=== PATIENT | female | born 1985 | race Hispanic/Latino ===

== ENCOUNTER 2016-11-16 21:53 | Emergency (ER) | payer OTHER ==
[~2016-11-16 21:53] MED LIST: CETI10TA PO; EXCETAB80 PO; FLUT1LOT; HYDR1SOL PO; LORT1TAB PO; OMEP40CA2 PO; ZONI25CA2 PO; ZONI50CA3 PO
[2016-11-16] MEDS ORDERED: IBUPROFEN 800 MG TAB As Ordered ONE (23:36)
[2016-11-17] MEDS ORDERED: DOXYCYCLINE HYCLATE 100 MG TAB As Ordered ONE (00:32)
--- NOTE | 2016-11-17 01:06 | EDDOCDS ---
Nurse's Notes [facility] Name: Marlee Lee Age: 30 yrs Sex: Female : 1985 Arrival Date: 11/16/2016 Time: 21:53 Bed PR1 / 25 Private MD: Susie Seo C Diagnosis: Acute bronchitis Presentation: 11/16 21:59 Presenting complaint: Patient states: Patient reports starting with cough yesterday but jmb feels sore today. Feet and low back discomfort. Adult Sepsis Screening: The patient does not have new or worsening altered mentation. Patient's respiratory rate is less than 22. Systolic blood pressure is greater than 100. Patient has a qSOFA score of 0- Negative Sepsis Screen. Suicide/Homicide risk assessment- the patient denies having any suicidal and/or homicidal ideations and does not present with any other emotional, behavioral or mental health complaints. Status: Patient is not a clinical services director or dependent. Transition of care: patient was not received from another setting of care. 21:59 Acuity: CAR Level 4 [facility] 21:59 Method Of Arrival: Walkin/Carried/Asstd [facility] Triage Assessment: 22:00 General: Appears in no apparent distress, Behavior is appropriate for age, cooperative. [facility] General: Patient denies pain just soreness. . Pain: Denies pain. HIV screening NA for this visit Offered previously. Neurological: Level of Consciousness is awake, alert, obeys commands, Oriented to person, place, time. Respiratory: Airway is patent Respiratory effort is even, unlabored, Respiratory pattern is regular, symmetrical. Derm: Skin is pink, warm & dry. Musculoskeletal: Range of motion intact in all extremities. 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 ferrous sulfate 325 mg (65 mg iron) Oral tab daily 2. Flexeril 5 mg oral tab 1 tab 3 times per day 3. loratadine 10 mg Oral tab 1 tab once daily 4. omeprazole 40 mg Oral cpDR 1 cap once daily 5. zonisamide 50 mg oral cap 1 cap one capsule in am two at night - PMHx: Chiari Malformation; GERD; Migraine Headaches; Seizure Disorder; - PSHx: Tonsillectomy; thymus removal; chiari malformation removal; - Social history: Smoking status: Patient states was never smoker of tobacco. No barriers to communication noted, The patient speaks fluent Romanian, Speaks appropriately for age, Preferred Language: Slovak. - Family history: Not pertinent. - : The pt / caregiver states he / she is not on anticoagulants. Home medication list is obtained from the patient. - Exposure Risk Screening:: None identified. Screenin/15 01:02 Screening information is obtained from the patient. Fall risk: No risks identified. slm Assistance ADL's: requires no assistance with activities of daily living. Abuse/DV Screen: The patient / caregiver reports he/she is: not in a situation that causes fear, pain or injury. Nutritional screening: No deficits noted. Advance Directives: Currently, there is no health care proxy. There is no active DNR order. There is no living will. There is no Power of Shore Worker. Advance directive information has not previously been placed in an [facility] medical record. home support is adequate. Assessment: 01:01 General: Appears in no apparent distress, comfortable, Behavior is cooperative. slm Respiratory: Airway is patent Respiratory effort is even, unlabored. Derm: Skin is pink, warm & dry. Vital Signs: 11/16 21:55 BP 143 / 80; Pulse 118; Resp 18 S; Temp 100.9(O); Pulse Ox 100% on R/A; Weight 104.33 dd6 kg (R); Height 5 ft. 4 in. (162.56 cm) (R); 11/17 01:03 BP 141 / 74; Pulse 100; Resp 18; Temp 98.9(T); Pulse Ox 18% on R/A; slm 11/16 21:55 Body Mass Index 39.48 (104.33 kg, 162.56 cm) dd6 Vitals: 11/16 21:55 Log In Time: November 16, 2016 at 21:53. dd6 ED Course: 21:54 Patient visited by Cm Garcia PCA. dd6 21:54 Susie Seo is Private Physician. dd6 21:54 Patient moved to Waiting dd6 21:59 Patient moved to Pre RCE dd6 21:59 Triage Initiated jmb 22:38 Patient moved to Triage 2 jordan 23:22 Prahsant Gaona [facility]C [facility] ck7 23:22 Derek Daley DO is Attending Physician. ck7 23:22 Patient visited by Prashant Gaona RPA-C. ck 23:38 Patient moved to TR2 [facility] 23:38 -Influenza A&B Rapid Antigen - Nose Sent. [facility] 11/17 00:00 Patient name changed from Nessasa\S\\S\Tom Claudiorio\S\ to Marlee\S\ \S\Tom Claudiorio. EDMS 00:00 [facility] Payment Agreement was scanned into [employer] and attached to record. hs2 00:07 Patient visited by Prashant Gaona RPA-C. ck7 00:24 Susie Seo is Referral Physician. ck 00:31 Patient moved to PR1 / 25 [facility] 01:04 The patient / caregiver is instructed regarding the plan of care and ED course. Patient slm has correct armband on for positive identification. Bed in low position. Call light in reach. Side rails up X 1. 01:04 No IV's were initiated during this patient's visit. No procedures done that require slm assistance. Administered Medications: 11/16 23:38 Drug: Ibuprofen 800 mg [ibuprofen 800 mg tablet (1 tabs)] Route: PO; [facility] 11/17 01:03 Follow up: Response: Temperature is decreased [facility] 00:33 Drug: Doxycycline 100 mg [doxycycline hyclate 100 mg tablet (1 tabs)] Route: PO; [facility] Point of Care Testing: Urine : 11/16 23:42 hCG Reading: Negative; Control Reading: Positive; [facility] Ranges: Order Results: Lab Order: -Influenza A&B Rapid Antigen - Nose; SPEC'M 11/16/16 23:39 Test: INFLUENZA A RAPID SCR by ICA; Value: INFLUENZA A RESULTS NEGATIVE; Status: F Test: INFLUENZA A RAPID SCR by ICA; Value: Comments:; Status: F Test: INFLUENZA B RAPID SCR by ICA; Value: INFLUENZA B RESULTS NEGATIVE; Status: F Test Note: ; The Influenza test is a direct rapid immunoassay for the qualitative detection of Influenza viral antigen. Cell culture (Viral Culture) testing should be considered to confirm NEGATIVE results and to assist in detecting other viruses that can provide similar clinical symptoms. Please contact the lab within 24 hours ([phone]) if confirmatory testing is desired. Outcome: 11/17 00:24 Discharge ordered by Provider. ck7 01:02 Discharge Assessment: Patient awake, alert and oriented x 3. No cognitive and/or slm functional deficits noted. Patient verbalized understanding of disposition instructions. patient administered narcotics - no. The following High Risk Discharge criteria are identified: None. Discharged to home ambulatory. Condition: good. Discharge instructions given to patient, Instructed on discharge instructions, follow up and referral plans. medication usage, Demonstrated understanding of instructions, medications, Prescriptions given X 3. No special radiology studies were completed. Property :Personal belongings accompany Pt. 01:05 Patient left the ED. slm Signatures: Dispatcher MedHost EDMS Cm Garcia, TYPO MACHINE OPERATOR TYPO MACHINE OPERATOR dd6 Prashant Gaona, RPA-C RPA-Cck7 Sang Naqvi,RN RN Beverly Gipson,LEAN ENGINEER LEAN ENGINEER Nancy Islas, Reg Reg hs2 ZULLY
--- NOTE | 2016-11-17 01:06 | EDDOCDS ---
Physician Documentation [facility] Name: Marlee Lee Age: 30 yrs Sex: Female : 1985 Arrival Date: 11/16/2016 Time: 21:53 Bed PR1 / 25 Private MD: Susie Seo C Disposition: 11/17/16 00:24 Discharged to Home/Self Care. Impression: Acute bronchitis. - Condition is Stable. - Discharge Instructions: Acute Bronchitis. - Prescriptions for Doxycycline Hyclate 100 mg Oral Tablet - take 1 tablet by ORAL route every 12 hours; 20 tablet. benzonatate 200 mg Oral Capsule - take 1 capsule by ORAL route 3 times per day As needed; 30 capsule. Ibuprofen 600 mg Oral Tablet - take 1 tablet by ORAL route every 6 hours As needed take with food; 30 tablet. - Work Release Form - 1 day, Medication Reconciliation, Local Pharmacy Hours form. - Follow up: Susie Seo; When: 2 - 3 days; Reason: Recheck today's complaints, Continuance of care. - Problem is new. - Symptoms have improved. Historical: - Allergies: No known drug Allergies; - Home Meds: 1. ferrous sulfate 325 mg (65 mg iron) Oral tab daily 2. Flexeril 5 mg oral tab 1 tab 3 times per day 3. loratadine 10 mg Oral tab 1 tab once daily 4. omeprazole 40 mg Oral cpDR 1 cap once daily 5. zonisamide 50 mg oral cap 1 cap one capsule in am two at night - PMHx: Chiari Malformation; GERD; Migraine Headaches; Seizure Disorder; - PSHx: Tonsillectomy; thymus removal; chiari malformation removal; - Social history: Smoking status: Patient states was never smoker of tobacco. No barriers to communication noted, The patient speaks fluent P[place], Speaks appropriately for age, Preferred Language: Estonian. - Family history: Not pertinent. - : The pt / caregiver states he / she is not on anticoagulants. Home medication list is obtained from the patient. - Exposure Risk Screening:: None identified. 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 4 in. (162.56 cm) (R); 11/17 01:03 BP 141 / 74; Pulse 100; Resp 18; Temp 98.9(T); Pulse Ox 18% on R/A; [facility] 11/16 21:55 Body Mass Index 39.48 (104.33 kg, 162.56 cm) dd6 MDM: 11/16 23:30 Obtain sample by nasopharyngeal swab ordered. ck7 23:30 Ibuprofen 800 mg PO once ordered. ck7 23:30 UCG by Nursing ordered. ck7 23:31 -Influenza A&B Rapid Antigen - Nose Ordered. EDMS 23:31 Chest, 2 View (pa\E\lat) Ordered. EDMS 23:40 Financial registration complete. hs2 11/17 00:00 [facility] Payment Agreement was scanned into [employer] and attached to record. hs2 00:07 -Influenza A&B Rapid Antigen - Nose Reviewed. ck7 00:27 Doxycycline 100 mg PO once ordered. ck7 Point of Care Testing: Urine : 11/16 23:42 hCG Reading: Negative; Control Reading: Positive; [facility] Ranges: Administered Medications: 23:38 Drug: Ibuprofen 800 mg [ibuprofen 800 mg tablet (1 tabs)] Route: PO; [facility] 11/17 01:03 Follow up: Response: Temperature is decreased [facility] 00:33 Drug: Doxycycline 100 mg [doxycycline hyclate 100 mg tablet (1 tabs)] Route: PO; [facility] Signatures: Dispatcher MedHost EDMS Prashant Gaona, RPA-C RPA-Cck7 Sang Naqvi,GRAY RN laurob Beverly Alcaraz,JESSICA DIAMONDN [facility] Nancy Nix, Reg Reg hs2 The chart was reviewed and I authenticate all verbal orders and agree with the evaluation and treatment provided.Attachments: 00:00 [facility] Payment Agreement hs2 MTDD
--- NOTE | 2016-11-17 08:14 | REP ---
Clinical: Acute cough . Comparison: 12/01/2015 . Technique: PA and lateral. Findings: The mediastinum and cardiac silhouette are normal. The lung dean are clear and without acute consolidation, effusion, or pneumothorax. The skeletal structures are intact and normal. Impression: 1. No acute cardiopulmonary process. Signed by Conner Trotter MD 11/17/2016 08:06 A
--- NOTE | 2016-11-19 02:06 | EDDOCDS ---
Physician Documentation [facility] Name: Marlee Lee Age: 30 yrs Sex: Female : 1985 Arrival Date: 11/16/2016 Time: 21:53 Bed PR1 / 25 Private MD: Susie Seo C Disposition: 11/17/16 00:24 Discharged to Home/Self Care. Impression: Acute bronchitis. - Condition is Stable. - Discharge Instructions: Acute Bronchitis. - Prescriptions for Doxycycline Hyclate 100 mg Oral Tablet - take 1 tablet by ORAL route every 12 hours; 20 tablet. benzonatate 200 mg Oral Capsule - take 1 capsule by ORAL route 3 times per day As needed; 30 capsule. Ibuprofen 600 mg Oral Tablet - take 1 tablet by ORAL route every 6 hours As needed take with food; 30 tablet. - Work Release Form - 1 day, Medication Reconciliation, Local Pharmacy Hours form. - Follow up: Susie Seo; When: 2 - 3 days; Reason: Recheck today's complaints, Continuance of care. - Problem is new. - Symptoms have improved. Historical: - Allergies: No known drug Allergies; - Home Meds: 1. ferrous sulfate 325 mg (65 mg iron) Oral tab daily 2. Flexeril 5 mg oral tab 1 tab 3 times per day 3. loratadine 10 mg Oral tab 1 tab once daily 4. omeprazole 40 mg Oral cpDR 1 cap once daily 5. zonisamide 50 mg oral cap 1 cap one capsule in am two at night - PMHx: Chiari Malformation; GERD; Migraine Headaches; Seizure Disorder; - PSHx: Tonsillectomy; thymus removal; chiari malformation removal; - Social history: Smoking status: Patient states was never smoker of tobacco. No barriers to communication noted, The patient speaks fluent Mauritanian, Speaks appropriately for age, Preferred Language: Sami. - Family history: Not pertinent. - : The pt / caregiver states he / she is not on anticoagulants. Home medication list is obtained from the patient. - Exposure Risk Screening:: None identified. 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 4 in. (162.56 cm) (R); 11/17 01:03 BP 141 / 74; Pulse 100; Resp 18; Temp 98.9(T); Pulse Ox 18% on R/A; m 11/16 21:55 Body Mass Index 39.48 (104.33 kg, 162.56 cm) dd6 MDM: 11/16 23:30 Obtain sample by nasopharyngeal swab ordered. ck7 23:30 Ibuprofen 800 mg PO once ordered. ck7 23:30 UCG by Nursing ordered. ck7 23:31 -Influenza A&B Rapid Antigen - Nose Ordered. EDMS 23:31 Chest, 2 View (pa\E\lat) Ordered. EDMS 23:40 Financial registration complete. hs2 11/17 00:00 [facility] Payment Agreement was scanned into [employer] and attached to record. hs2 00:07 -Influenza A&B Rapid Antigen - Nose Reviewed. ck7 00:27 Doxycycline 100 mg PO once ordered. ck7 07:59 T-Sheet-- Draft Copy was scanned into [employer] and attached to record. [facility] Point of Care Testing: Urine : 11/16 23:42 hCG Reading: Negative; Control Reading: Positive; [facility] Ranges: Administered Medications: 23:38 Drug: Ibuprofen 800 mg [ibuprofen 800 mg tablet (1 tabs)] Route: PO; jmjordan 11/17 01:03 Follow up: Response: Temperature is decreased [facility] 00:33 Drug: Doxycycline 100 mg [doxycycline hyclate 100 mg tablet (1 tabs)] Route: PO; [facility] Signatures: Dispatcher MedHost EDMS Prashant Gaona, RPA-C RPA-Cck7 Sang Naqvi,GRYA RN Beverly Gipson,RECYCLING COORDINATOR RECYCLING COORDINATOR [facility] Nancy Nix, Reg Reg [address] [facility] The chart was reviewed and I authenticate all verbal orders and agree with the evaluation and treatment provided.Attachments: 00:00 [facility] Payment Agreement hs2 07:59 T-Sheet-- Draft Copy [facility] Chart Complete MTDD
--- NOTE | 2016-11-19 02:06 | EDDOCDS ---
Nurse's Notes [facility] Name: Marlee Lee Age: 30 yrs Sex: Female : 1985 Arrival Date: 11/16/2016 Time: 21:53 Bed PR1 / 25 Private MD: Susie Seo C Diagnosis: Acute bronchitis Presentation: 11/16 21:59 Presenting complaint: Patient states: Patient reports starting with cough yesterday but jmb feels sore today. Feet and low back discomfort. Adult Sepsis Screening: The patient does not have new or worsening altered mentation. Patient's respiratory rate is less than 22. Systolic blood pressure is greater than 100. Patient has a qSOFA score of 0- Negative Sepsis Screen. Suicide/Homicide risk assessment- the patient denies having any suicidal and/or homicidal ideations and does not present with any other emotional, behavioral or mental health complaints. 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 Transition of care: patient was not received from another setting of care. 21:59 Acuity: CAR Level 4 [facility] 21:59 Method Of Arrival: Walkin/Carried/Asstd [facility] Triage Assessment: 22:00 General: Appears in no apparent distress, Behavior is appropriate for age, cooperative. [facility] General: Patient denies pain just soreness. . Pain: Denies pain. HIV screening NA for this visit Offered previously. Neurological: Level of Consciousness is awake, alert, obeys commands, Oriented to person, place, time. Respiratory: Airway is patent Respiratory effort is even, unlabored, Respiratory pattern is regular, symmetrical. Derm: Skin is pink, warm & dry. Musculoskeletal: Range of motion intact in all extremities. 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 ferrous sulfate 325 mg (65 mg iron) Oral tab daily 2. Flexeril 5 mg oral tab 1 tab 3 times per day 3. loratadine 10 mg Oral tab 1 tab once daily 4. omeprazole 40 mg Oral cpDR 1 cap once daily 5. zonisamide 50 mg oral cap 1 cap one capsule in am two at night - PMHx: Chiari Malformation; GERD; Migraine Headaches; Seizure Disorder; - PSHx: Tonsillectomy; thymus removal; chiari malformation removal; - Social history: Smoking status: Patient states was never smoker of tobacco. No barriers to communication noted, The patient speaks fluent Bulgarian, Speaks appropriately for age, Preferred Language: Hebrew. - Family history: Not pertinent. - : The pt / caregiver states he / she is not on anticoagulants. Home medication list is obtained from the patient. - Exposure Risk Screening:: None identified. Screenin/15 01:02 Screening information is obtained from the patient. Fall risk: No risks identified. slm Assistance ADL's: requires no assistance with activities of daily living. Abuse/DV Screen: The patient / caregiver reports he/she is: not in a situation that causes fear, pain or injury. Nutritional screening: No deficits noted. Advance Directives: Currently, there is no health care proxy. There is no active DNR order. There is no living will. There is no Power of Mental Health Professional. Advance directive information has not previously been placed in an [facility] medical record. home support is adequate. Assessment: 01:01 General: Appears in no apparent distress, comfortable, Behavior is cooperative. slm Respiratory: Airway is patent Respiratory effort is even, unlabored. Derm: Skin is pink, warm & dry. Vital Signs: 11/16 21:55 BP 143 / 80; Pulse 118; Resp 18 S; Temp 100.9(O); Pulse Ox 100% on R/A; Weight 104.33 dd6 kg (R); Height 5 ft. 4 in. (162.56 cm) (R); 11/17 01:03 BP 141 / 74; Pulse 100; Resp 18; Temp 98.9(T); Pulse Ox 18% on R/A; slm 11/16 21:55 Body Mass Index 39.48 (104.33 kg, 162.56 cm) dd6 Vitals: 11/16 21:55 Log In Time: November 16, 2016 at 21:53. dd6 ED Course: 21:54 Patient visited by Cm Garcia PCA. dd6 21:54 Susei Seo is Private Physician. dd6 21:54 Patient moved to Waiting dd6 21:59 Patient moved to Pre RCE dd6 21:59 Triage Initiated jmb 22:38 Patient moved to Triage 2 jordan 23:22 Prashant Gaona RPA-C [facility]. ck7 23:22 Derek Daley DO is Attending Physician. ck7 23:22 Patient visited by Prashant Gaona RPA-C. ck7 23:38 Patient moved to TR2 jm 23:38 -Influenza A&B Rapid Antigen - Nose Sent. [facility] 11/17 00:00 Patient name changed from Nessasa\S\\S\Santos Rosa\S\ to Nessasa\S\ \S\Tom Claudiorio. EDMS 00:00 [facility] Payment Agreement was scanned into [employer] and attached to record. hs2 00:07 Patient visited by Prashant Gaona RPA-C. ck7 00:24 Susie Seo is Referral Physician. ck7 00:31 Patient moved to PR1 / 25 [facility] 01:04 The patient / caregiver is instructed regarding the plan of care and ED course. Patient slm has correct armband on for positive identification. Bed in low position. Call light in reach. Side rails up X 1. 01:04 No IV's were initiated during this patient's visit. No procedures done that require slm assistance. 07:59 T-Sheet-- Draft Copy was scanned into [employer] and attached to record. [facility] 08:32 Chest, 2 View (pa\E\lat) Returned. EDMS Administered Medications: 11/16 23:38 Drug: Ibuprofen 800 mg [ibuprofen 800 mg tablet (1 tabs)] Route: PO; [facility] 11/17 01:03 Follow up: Response: Temperature is decreased [facility] 00:33 Drug: Doxycycline 100 mg [doxycycline hyclate 100 mg tablet (1 tabs)] Route: PO; [facility] Point of Care Testing: Urine : 11/16 23:42 hCG Reading: Negative; Control Reading: Positive; [facility] Ranges: Order Results: Lab Order: -Influenza A&B Rapid Antigen - Nose; SPEC'M 11/16/16 23:39 Test: INFLUENZA A RAPID SCR by ICA; Value: INFLUENZA A RESULTS NEGATIVE; Status: F Test: INFLUENZA A RAPID SCR by ICA; Value: Comments:; Status: F Test: INFLUENZA B RAPID SCR by ICA; Value: INFLUENZA B RESULTS NEGATIVE; Status: F Test Note: ; The Influenza test is a direct rapid immunoassay for the qualitative detection of Influenza viral antigen. Cell culture (Viral Culture) testing should be considered to confirm NEGATIVE results and to assist in detecting other viruses that can provide similar clinical symptoms. Please contact the lab within 24 hours ([phone]) if confirmatory testing is desired. Radiology Order: Chest, 2 View (pa\E\lat) Test: Chest, 2 View (pa\E\lat) REASON FOR EXAMINATION: Cough; Clinical: Acute cough .; ; Comparison: 12/01/2015 .; ; Technique: PA and lateral.; ; Findings:; The mediastinum and cardiac silhouette are normal. The lung dean are clear and; without acute consolidation, effusion, or pneumothorax. The skeletal structures; are intact and normal.; ; Impression:; 1. No acute cardiopulmonary process.; ; ; Signed by; Conner Trotter MD 11/17/2016 08:06 A; Outcome: 11/17 00:24 Discharge ordered by Provider. ck7 01:02 Discharge Assessment: Patient awake, alert and oriented x 3. No cognitive and/or slm functional deficits noted. Patient verbalized understanding of disposition instructions. patient administered narcotics - no. The following High Risk Discharge criteria are identified: None. Discharged to home ambulatory. Condition: good. Discharge instructions given to patient, Instructed on discharge instructions, follow up and referral plans. medication usage, Demonstrated understanding of instructions, medications, Prescriptions given X 3. No special radiology studies were completed. Property :Personal belongings accompany Pt. 01:05 Patient left the ED. slm Signatures: Dispatcher MedHost EDMS Cm Garcia, HARLEY DERRICK MAN dd6 Prashant Gaona, RPA-C RPA-Cck7 Sang Naqvi RN RN Beverly Gipson LPN LPN sl Nancy Nix, Reg Reg hs2 Aracely Fine [facility] Chart Complete MTDD
--- NOTE | 2016-11-19 02:06 | EDDOCDS ---
Physician Documentation [facility] Name: Marlee Lee Age: 30 yrs Sex: Female : 1985 Arrival Date: 11/16/2016 Time: 21:53 Bed PR1 / 25 Private MD: Susie Seo C Disposition: 11/17/16 00:24 Discharged to Home/Self Care. Impression: Acute bronchitis. - Condition is Stable. - Discharge Instructions: Acute Bronchitis. - Prescriptions for Doxycycline Hyclate 100 mg Oral Tablet - take 1 tablet by ORAL route every 12 hours; 20 tablet. benzonatate 200 mg Oral Capsule - take 1 capsule by ORAL route 3 times per day As needed; 30 capsule. Ibuprofen 600 mg Oral Tablet - take 1 tablet by ORAL route every 6 hours As needed take with food; 30 tablet. - Work Release Form - 1 day, Medication Reconciliation, Local Pharmacy Hours form. - Follow up: Susie Seo; When: 2 - 3 days; Reason: Recheck today's complaints, Continuance of care. - Problem is new. - Symptoms have improved. Historical: - Allergies: No known drug Allergies; - Home Meds: 1. ferrous sulfate 325 mg (65 mg iron) Oral tab daily 2. Flexeril 5 mg oral tab 1 tab 3 times per day 3. loratadine 10 mg Oral tab 1 tab once daily 4. omeprazole 40 mg Oral cpDR 1 cap once daily 5. zonisamide 50 mg oral cap 1 cap one capsule in am two at night - PMHx: Chiari Malformation; GERD; Migraine Headaches; Seizure Disorder; - PSHx: Tonsillectomy; thymus removal; chiari malformation removal; - Social history: Smoking status: Patient states was never smoker of tobacco. No barriers to communication noted, The patient speaks fluent Belarusian, Speaks appropriately for age, Preferred Language: Nepali. - Family history: Not pertinent. - : The pt / caregiver states he / she is not on anticoagulants. Home medication list is obtained from the patient. - Exposure Risk Screening:: None identified. SCHOOL LUNCH MONITOR: 11/16 22:00 LMP 10/24/2016 [facility] Vital Signs: 21:55 BP 143 / 80; Pulse 118; Resp 18 S; Temp 100.9(O); Pulse Ox 100% on R/A; Weight 104.33 dd6 kg / 230.01 lbs (R); Height 5 ft. 4 in. (162.56 cm) (R); 11/17 01:03 BP 141 / 74; Pulse 100; Resp 18; Temp 98.9(T); Pulse Ox 18% on R/A; m 11/16 21:55 Body Mass Index 39.48 (104.33 kg, 162.56 cm) dd6 MDM: 11/16 23:30 Obtain sample by nasopharyngeal swab ordered. ck7 23:30 Ibuprofen 800 mg PO once ordered. ck7 23:30 UCG by Nursing ordered. ck7 23:31 -Influenza A&B Rapid Antigen - Nose Ordered. EDMS 23:31 Chest, 2 View (pa\E\lat) Ordered. EDMS 23:40 Financial registration complete. hs2 11/17 00:00 [facility] Payment Agreement was scanned into [employer] and attached to record. hs2 00:07 -Influenza A&B Rapid Antigen - Nose Reviewed. ck7 00:27 Doxycycline 100 mg PO once ordered. ck7 07:59 T-Sheet-- Draft Copy was scanned into [employer] and attached to record. [facility] Point of Care Testing: Urine : 11/16 23:42 hCG Reading: Negative; Control Reading: Positive; [facility] Ranges: Administered Medications: 23:38 Drug: Ibuprofen 800 mg [ibuprofen 800 mg tablet (1 tabs)] Route: PO; jmjordan 11/17 01:03 Follow up: Response: Temperature is decreased [facility] 00:33 Drug: Doxycycline 100 mg [doxycycline hyclate 100 mg tablet (1 tabs)] Route: PO; [facility] Signatures: Dispatcher [employer] EDMS Prashant Gaona, RPA-C RPA-Cck7 Sang Naqvi,GRAY RN Beverly Gipson,RECREATION TECHNICIAN RECREATION TECHNICIAN [facility] Nancy Nix, Reg Reg [address] [facility] The chart was reviewed and I authenticate all verbal orders and agree with the evaluation and treatment provided.Attachments: 00:00 [facility] Payment Agreement hs2 07:59 T-Sheet-- Draft Copy [facility] Chart Complete MTDD
== END 2016-11-17 01:05 | disposition home or self-care (01) ==
LOC: M ED 21:53
DX: J20.9 Acute bronchitis, unspecified (principal); G93.5 Compression of brain; K21.9 Gastro-esophageal reflux disease without esophagitis; G43.909 Migraine, unspecified, not intractable, without status migrainosus; G40.909 Epilepsy, unspecified, not intractable, without status epilepticus; Z90.89 Acquired absence of other organs; Z79.899 Other long term (current) drug therapy

== ENCOUNTER → 2016-12-16 | Outpatient (CLI) | payer OTHER ==
--- NOTE | 2016-12-16 10:10 | REP ---
Clinical: Chiari syndrome . Technique: AP, lateral, flexion/extension, bilateral oblique, and open-mouth views. Findings: Alignment is maintained. There is no evidence for acute fracture / compression injury or subluxation. No significant degenerative changes are appreciated. Oblique views demonstrate patent neural foramen. Open mouth view demonstrates normal C1-C2 articulation and odontoid process. Impression: Normal cervical spine series. Signed by Conner Trotter MD 12/16/2016 10:01 A
== END ==
LOC: M RAD 09:21 → M LAB 09:21
PROVIDERS: ATTEND Neurological Surgery
DX: Q07.00 Arnold-Chiari syndrome without spina bifida or hydrocephalus (principal); M54.81 Occipital neuralgia

== ENCOUNTER → 2017-01-25 | Outpatient (CLI) | payer OTHER ==
--- NOTE | 2017-01-25 13:29 | REP ---
Clinical: PPD positive . Comparison: 11/16/2016 . Technique: PA and lateral. Findings: The mediastinum and cardiac silhouette are normal. The lung dean are clear and without acute consolidation, effusion, or pneumothorax. Minimal upper lobe scarring cannot be excluded. The skeletal structures are intact and normal. Impression: 1. No acute cardiopulmonary process. Signed by Conner Trotter MD 01/25/2017 01:20 P
== END ==
LOC: M WUC 13:05
PROVIDERS: ATTEND Physician Assistant
DX: Z11.1 Encounter for screening for respiratory tuberculosis (principal)

== ENCOUNTER → 2017-02-04 | Outpatient (CLI) | payer OTHER | LOC: M LAB 11:49 | DX: R76.11 Nonspecific reaction to tuberculin skin test without active tuberculosis (principal) ==

== ENCOUNTER → 2017-03-27 | Outpatient (CLI) | payer OTHER ==
[2017-03-27 10:15] LABS: BASO % 0.2 % (0.0-1.0); EOS # 0.2 K/mm3 (0.0-0.50); EOS % 2.1 % (0.0-3.0); LYMPH # 1.7 K/mm3 (1.5-4.5); MEAN CORPUSCULAR HEMOGLOBIN 25.8 pg (27.0-33.0); MEAN CORPUSCULAR HGB CONC 31.9 g/dl (32.0-36.5); MONO # 0.4 K/mm3 (0.0-0.8); MONO % 4.7 % (0.0-5.0); NEUTROPHILS # 5.2 K/mm3 (1.8-7.7); NEUTROPHILS % 69.9 % (36.0-66.0); RED CELL DISTRIBUTION WIDTH 14.2 % (11.5-14.5); WHITE BLOOD COUNT 7.4 K/mm3 (4.0-10.0)
[2017-03-27 10:48] LABS: ALBUMIN 3.3 GM/DL (3.2-5.2); ALBUMIN/GLOBULIN RATIO 0.89 (1.00-1.93); ALKALINE PHOSPHATASE 59 U/L (45-117); ALT/SGPT 24 U/L (12-78); ANION GAP 7 MEQ/L (8-16); AST/SGOT 13 U/L (15-37); BILIRUBIN,TOTAL 0.5 MG/DL (0.2-1.0); BLOOD UREA NITROGEN 10 MG/DL (7-18); CALCIUM LEVEL 8.6 MG/DL (8.5-10.1); CARBON DIOXIDE LEVEL 28 MEQ/L (21-32); CHLORIDE LEVEL 105 MEQ/L (98-107); CHOLESTEROL LEVEL 172 MG/DL (<200); CREATININE FOR GFR 0.57 MG/DL (0.55-1.02); FERRITIN 6 NG/ML (8-252); GLOMERULAR FILTRATION RATE > 60.0 (>60); GLUCOSE, FASTING 86 MG/DL (70-105); POTASSIUM SERUM 4.2 MEQ/L (3.5-5.1); SODIUM LEVEL 140 MEQ/L (136-145); TRIGLYCERIDES LEVEL 125 MG/DL (<150)
== END ==
LOC: M LAB 09:45
PROVIDERS: ATTEND Physician Assistant Medical
DX: D64.9 Anemia, unspecified (principal)

== ENCOUNTER → 2017-06-04 | Outpatient (CLI) | payer OTHER ==
[~2017-06-04] MED LIST changes: +CYCL5TAB PO; +IBUP-1114 PO; +IBUP80TA PO; +ROBA500T PO
[2017-06-04 09:51] LABS: FOLATE 18.8 NG/ML (>5.4); VITAMIN B12 LEVEL 376 PG/ML (247-911)
[2017-06-05 10:31] LABS: ALBUMIN 3.75 GM/DL (3.29-5.55); ALBUMIN % 53.5 % (55.8-66.1); GAMMA GLOBULIN % 18.6 % (11.1-18.8)
[2017-06-06 00:06] LABS: Lyme Disease IgG/IgM Antibodie <0.91 ISR (0.00-0.90); Lyme Disease IgM Ab Quantitati <0.80 index (0.00-0.79)
== END ==
LOC: M LAB 07:41
PROVIDERS: ATTEND Physician Assistant Medical
DX: R53.83 Other fatigue (principal)

== ENCOUNTER 2017-07-26 10:24 | Emergency (ER) | payer OTHER ==
[~2017-07-26] VITALS: Ht 162.6 cm; Wt 115.0 kg
[~2017-07-26 10:24] MED LIST changes: -CYCL5TAB PO; -IBUP-1114 PO; -IBUP80TA PO; -ROBA500T PO
[2017-07-26 10:25] VITALS: BP 134/83
[2017-07-26] MEDS ORDERED: CYCL5TAB PO (10:31)
[2017-07-26] MEDS ORDERED: IBUP-1114 PO (10:31)
[2017-07-26] MEDS ORDERED: KETOROLAC 60 MG/2 ML VIAL (J1885) IM ONE (11:00)
[2017-07-26] MEDS ORDERED: METHOCARBAMOL 500 MG TAB PO ONE (11:00)
[2017-07-26] MEDS ORDERED: ROBA500T PO (11:06)
[2017-07-26] MEDS ORDERED: IBUP80TA PO (11:06)
== END 2017-07-26 11:11 | disposition home or self-care (01) ==
LOC: M ED 10:24
DX: S29.012A Strain of muscle and tendon of back wall of thorax, initial encounter (principal); X58.XXXA Exposure to other specified factors, initial encounter; Y92.89 Other specified places as the place of occurrence of the external cause; Y93.89 Activity, other specified; Y99.8 Other external cause status; M62.830 Muscle spasm of back; J45.909 Unspecified asthma, uncomplicated; Q07.00 Arnold-Chiari syndrome without spina bifida or hydrocephalus; Z79.899 Other long term (current) drug therapy
CPT/HCPCS: 96372; 99282; J1885

== ENCOUNTER 2017-08-17 21:22 | Emergency (ER) | payer OTHER ==
[~2017-08-17] VITALS: Ht 162.6 cm; Wt 113.2 kg
[~2017-08-17 21:22] MED LIST changes: +CYCL5TAB PO; +IBUP-1114 PO; +IBUP80TA PO; +ROBA500T PO
[2017-08-17 22:16] VITALS: BP 146/87
== END 2017-08-17 22:24 | disposition home or self-care (01) ==
LOC: M ED 21:22
DX: M77.8 Other enthesopathies, not elsewhere classified (principal)

== ENCOUNTER → 2017-10-08 | Outpatient (CLI) | payer OTHER ==
[~2017-10-08] MED LIST changes: +ADVI200T PO; +AMOX875T PO; +FLON1SPR; +TESS100C PO
== END ==
LOC: M LAB 08:27
PROVIDERS: ATTEND Neurological Surgery
DX: E66.9 Obesity, unspecified (principal)

== ENCOUNTER 2017-10-14 17:40 | Emergency (ER) | payer OTHER ==
[~2017-10-14] VITALS: Ht 162.6 cm; Wt 118.2 kg
[~2017-10-14 17:40] MED LIST changes: -ADVI200T PO; -AMOX875T PO; -FLON1SPR; -TESS100C PO
[2017-10-14] MEDS ORDERED: ADVI200T PO (17:44)
[2017-10-14] MEDS ORDERED: TESS100C PO (18:58)
[2017-10-14] MEDS ORDERED: AMOX875T PO (18:58)
[2017-10-14] MEDS ORDERED: FLON1SPR (18:58)
[2017-10-14] MEDS ORDERED: AMOXICILLIN 500 MG CAP PO ONE (19:00)
[2017-10-14 19:10] VITALS: BP 118/56
== END 2017-10-14 19:10 | disposition home or self-care (01) ==
LOC: M ED 17:40
DX: J01.90 Acute sinusitis, unspecified (principal); Q07.00 Arnold-Chiari syndrome without spina bifida or hydrocephalus; F41.9 Anxiety disorder, unspecified; F33.9 Major depressive disorder, recurrent, unspecified; Z98.890 Other specified postprocedural states; Z79.899 Other long term (current) drug therapy

== ENCOUNTER → 2017-11-15 | Outpatient (CLI) | payer OTHER ==
[2017-11-15 08:40] LABS: BASO % 0.2 % (0.0-1.0); EOS # 0.2 10^3/uL (0.0-0.50); EOS % 2.6 % (0.0-3.0); HEMATOCRIT 34.7 % (36.0-47.0); HEMOGLOBIN 10.7 g/dl (12.0-16.0); IMMATURE GRANULOCYTE % 0.3 % (0-0); LYMPH % 23.6 % (24.0-44.0); MEAN CORPUSCULAR HEMOGLOBIN 24.4 pg (27.0-33.0); MEAN CORPUSCULAR HGB CONC 30.8 g/dl (32.0-36.5); MONO # 0.5 10^3/uL (0.0-0.8); NEUTROPHILS # 5.8 10^3/uL (1.8-7.7); NEUTROPHILS % 67.3 % (36.0-66.0); PLATELET COUNT, AUTOMATED 288 10^3/uL (150-450); RED BLOOD COUNT 4.39 10^6/uL (4.00-5.40); RED CELL DISTRIBUTION WIDTH 15.7 % (11.5-14.5); WHITE BLOOD COUNT 8.6 10^3/uL (4.0-10.0)
[2017-11-15 09:11] LABS: ALBUMIN 3.6 GM/DL (3.2-5.2); ALKALINE PHOSPHATASE 60 U/L (45-117); ALT/SGPT 20 U/L (12-78); ANION GAP 4 MEQ/L (8-16); AST/SGOT 13 U/L (7-37); BILIRUBIN,TOTAL 0.3 MG/DL (0.2-1.0); BLOOD UREA NITROGEN 13 MG/DL (7-18); CALCIUM LEVEL 8.3 MG/DL (8.5-10.1); CARBON DIOXIDE LEVEL 28 MEQ/L (21-32); CHLORIDE LEVEL 107 MEQ/L (98-107); CPK CREATINE PHOSPHOKINASE 91 U/L (26-192); GLOMERULAR FILTRATION RATE > 60.0 (>60); GLUCOSE, FASTING 100 MG/DL (70-105); POTASSIUM SERUM 3.7 MEQ/L (3.5-5.1); RHEUMATOID FACTOR QUANT < 10.0 IU/ML (0-15.0); SODIUM LEVEL 139 MEQ/L (136-145); TOTAL PROTEIN 7.2 GM/DL (6.4-8.2)
[2017-11-15 09:15] LABS: ERYTHROCYTE SEDIMENTATION RATE 32 mm/hr (0-20)
[2017-11-17 09:39] LABS: FERRITIN 9 NG/ML (8-252); IRON (FE) 34 UG/DL (50-170)
[2017-11-17 10:42] LABS: VITAMIN B12 LEVEL 346 PG/ML
[2017-11-17 10:43] LABS: FOLATE 12.3 NG/ML; TOTAL 25(OH) VITAMIN D 10.5 NG/ML (30.0-100.0)
[2017-11-17 12:22] LABS: ALBUMIN 3.89 GM/DL (3.29-5.55); ALPHA-1-GLOBULIN % 4.1 % (2.9-4.9); ALPHA-2-GLOBULINS 0.75 GM/DL (0.42-0.99); ALPHA-2-GLOBULINS % 10.4 % (7.1-11.8); BETA-1-GLOBULINS % 6.9 % (4.7-7.2); BETA-2-GLOBULINS % 6.3 % (3.2-6.5); GAMMA GLOBULIN % 18.3 % (11.1-18.8)
[2017-11-17 12:23] LABS: BETA-2-GLOBULINS 0.45 GM/DL (0.19-0.55); GAMMA GLOBULINS 1.32 GM/DL (0.65-1.58)
[2017-11-18 00:07] LABS: ANTINUCLEAR ANTIBODIES DIRECT Negative (Negative); Lyme Disease IgG/IgM Antibodie <0.91 ISR (0.00-0.90); Lyme Disease IgM Ab Quantitati <0.80 index (0.00-0.79)
[2017-11-18 11:08] LABS: DRVV SCREEN 45.2 SEC
[2017-11-18 11:19] LABS: PTT LUPUS TYPE ANTICOAG SCREEN 1.1 (0-1.2)
== END ==
LOC: M LAB 07:42
DX: R53.83 Other fatigue (principal)
CPT/HCPCS: 82550

== ENCOUNTER → 2017-11-27 | Outpatient (REF) | payer OTHER ==
[2017-11-28 00:12] LABS: INFLUENZA A AMPLIFICATION NEGATIVE (NEGATIVE); INFLUENZA B AMPLIFICATION NEGATIVE (NEGATIVE); RSV AMPLIFICATION NEGATIVE (NEGATIVE)
== END ==
LOC: M LAB REF 21:46
DX: J11.1 Influenza due to unidentified influenza virus with other respiratory manifestations (principal)

== ENCOUNTER 2018-04-25 18:18 | Emergency (ER) | payer OTHER ==
[2018-04-25] MEDS: CYCLOBENZAPRINE 10 MG TAB PO (19:29)
[2018-04-25] MEDS: NAPROXEN 250 MG TAB PO (19:33)
== END 2018-04-25 19:34 | disposition home or self-care (01) ==
LOC: M ED 18:18
DX: S16.1XXA Strain of muscle, fascia and tendon at neck level, initial encounter (principal); S29.012A Strain of muscle and tendon of back wall of thorax, initial encounter; X50.3XXA Overexertion from repetitive movements, initial encounter; Y92.9 Unspecified place or not applicable; Y93.9 Activity, unspecified; Y99.9 Unspecified external cause status; R51 Headache; Q07.00 Arnold-Chiari syndrome without spina bifida or hydrocephalus; K21.9 Gastro-esophageal reflux disease without esophagitis; F32.9 Major depressive disorder, single episode, unspecified; F41.9 Anxiety disorder, unspecified; Z87.09 Personal history of other diseases of the respiratory system
CPT/HCPCS: 99283

== ENCOUNTER 2018-05-15 20:56 | Emergency (ER) | payer OTHER | END 2018-05-15 23:05 | disposition home or self-care (01) | LOC: M ED 20:56 | DX: J45.909 Unspecified asthma, uncomplicated (principal); Z79.1 Long term (current) use of non-steroidal anti-inflammatories (NSAID) | CPT/HCPCS: 99283 ==

== ENCOUNTER → 2018-08-04 | Outpatient (CLI) | payer OTHER ==
[2018-08-04 11:01] LABS: HEMATOCRIT 39.5 % (36.0-47.0); MEAN CORPUSCULAR HEMOGLOBIN 24.2 pg (27.0-33.0); MEAN CORPUSCULAR HGB CONC 30.4 g/dl (32.0-36.5); MEAN CORPUSCULAR VOLUME 79.8 fl (80.0-96.0); PLATELET COUNT, AUTOMATED 344 10^3/uL (150-450); RED BLOOD COUNT 4.95 10^6/uL (4.00-5.40); RED CELL DISTRIBUTION WIDTH 15.8 % (11.5-14.5)
[2018-08-04 11:33] LABS: ESTIMATED AVERAGE GLUCOSE 111 MG/DL (60-110); HEMOGLOBIN A1c 5.5 %
[2018-08-04 11:52] LABS: ALBUMIN 3.3 GM/DL (3.2-5.2); ALBUMIN/GLOBULIN RATIO 0.83 (1.00-1.93); ALKALINE PHOSPHATASE 54 U/L (45-117); ALT/SGPT 20 U/L (12-78); ANION GAP 10 MEQ/L (8-16); AST/SGOT 14 U/L (7-37); BILIRUBIN,TOTAL 0.6 MG/DL (0.2-1.0); BLOOD UREA NITROGEN 7 MG/DL (7-18); CALCIUM LEVEL 8.4 MG/DL (8.5-10.1); CARBON DIOXIDE LEVEL 24 MEQ/L (21-32); CHLORIDE LEVEL 107 MEQ/L (98-107); CHOLESTEROL LEVEL 178 MG/DL (<200); CREATININE FOR GFR 0.62 MG/DL (0.55-1.30); GLOMERULAR FILTRATION RATE > 60.0 (>60); GLUCOSE, FASTING 87 MG/DL (70-100); HDL CHOLESTEROL 40 MG/DL (>40); LDL CHOLESTEROL 115 MG/DL (<100); NON-HDL-C 138 MG/DL; POTASSIUM SERUM 4.1 MEQ/L (3.5-5.1); SODIUM LEVEL 141 MEQ/L (136-145); TOTAL 25(OH) VITAMIN D 14.1 NG/ML (30.0-100.0); TOTAL PROTEIN 7.3 GM/DL (6.4-8.2); TRIGLYCERIDES LEVEL 113 MG/DL (<150)
== END ==
LOC: M LAB 10:05
DX: R53.83 Other fatigue (principal); I10 Essential (primary) hypertension; E03.9 Hypothyroidism, unspecified
CPT/HCPCS: 71046

== ENCOUNTER → 2018-08-25 | Outpatient (REF) | payer OTHER ==
[2018-08-26 10:20] LABS: HIV 1&2 SCREEN CENTAUR NEGATIVE (NEGATIVE)
== END ==
LOC: M SFHCPLAZ 10:42
DX: R76.11 Nonspecific reaction to tuberculin skin test without active tuberculosis (principal)

== ENCOUNTER 2019-02-24 19:14 | Emergency (ER) | payer OTHER ==
[~2019-02-24] VITALS: Ht 162.6 cm; Wt 108.2 kg
[2019-02-24 19:14] VITALS: BP 136/82
[~2019-02-24 19:14] MED LIST changes: +ADVI200T PO; +AMOX875T PO; +CYCL10TA PO; +FLON1SPR; +MUCI600T37 PO; +NAPR-837 PO; +SUDA30TA8 PO; +TESS100C PO
[2019-02-24] MEDS ORDERED: NAPR-837 PO (20:08)
--- NOTE | 2019-02-25 08:58 | REP ---
LEFT ANKLE SERIES: Four views of the left ankle performed. A small round calcification is seen distal to the fibula and another is seen distal to the medial malleolus likely representing old avulsion fractures. No acute fracture or dislocation is seen. The ankle mortise is anatomic. IMPRESSION: No acute fracture or dislocation. Electronically Signed by Tommy Robison MD 02/25/2019 11:06 A
== END 2019-02-24 20:15 | disposition home or self-care (01) ==
LOC: M ED 19:14
DX: S93.402A Sprain of unspecified ligament of left ankle, initial encounter (principal); X58.XXXA Exposure to other specified factors, initial encounter; Y92.9 Unspecified place or not applicable; Y93.9 Activity, unspecified; Y99.0 Civilian activity done for income or pay; Z87.891 Personal history of nicotine dependence

== ENCOUNTER 2019-08-08 16:32 | Inpatient (IN) | payer BC, OTHER, SELFPAY ==
[~2019-08-08] VITALS: Ht 162.6 cm; Wt 97.3 kg
[2019-08-08 17:42] LABS: HEMATOCRIT 34.7 % (36.0-47.0); HEMOGLOBIN 10.7 g/dl (12.0-15.5); MEAN CORPUSCULAR HGB CONC 30.8 g/dl (32.0-36.5); PLATELET COUNT, AUTOMATED 312 10^3/uL (150-450); RED BLOOD COUNT 4.45 10^6/uL (4.00-5.40); WHITE BLOOD COUNT 10.5 10^3/uL (4.0-10.0)
[2019-08-08 18:09] LABS: AMPHETAMINES LEVEL URINE NEGATIVE (NEGATIVE); BARBITURATES URINE NEGATIVE (NEGATIVE); BENZODIAZEPINES URINE NEGATIVE (NEGATIVE); CANNABINOIDS URINE NEGATIVE (NEGATIVE); COCAINE METABOLITE URINE NEGATIVE (NEGATIVE); METHADONE URINE NEGATIVE (NEGATIVE); OPIATES URINE NEGATIVE (NEGATIVE); PHENCYCLIDINE URINE NEGATIVE (NEGATIVE)
[2019-08-08 18:15] LABS: HCG, SERUM QUALITATIVE NEGATIVE (NEGATIVE)
[2019-08-08 18:47] LABS: ACETAMINOPHEN LEVEL < 2.0 UG/ML (10.0-30.0); ALBUMIN 3.6 GM/DL (3.2-5.2); ALT/SGPT 12 U/L (12-78); BILIRUBIN,DIRECT 0.1 MG/DL (0.0-0.2); BILIRUBIN,TOTAL 0.4 MG/DL (0.2-1.0); BLOOD UREA NITROGEN 6 MG/DL (7-18); CALCIUM LEVEL 8.9 MG/DL (8.5-10.1); CARBON DIOXIDE LEVEL 30 MEQ/L (21-32); CHLORIDE LEVEL 105 MEQ/L (98-107); CREATININE FOR GFR 0.63 MG/DL (0.55-1.30); ETHYL ALCOHOL (ETHANOL) < 0.003 % (0.000-0.010); GLOMERULAR FILTRATION RATE > 60.0 (>60); GLUCOSE, FASTING 86 MG/DL (70-100); POTASSIUM SERUM 3.6 MEQ/L (3.5-5.1); SALICYLATE LEVEL < 1.7 MG/DL (5.0-30.0); SODIUM LEVEL 140 MEQ/L (136-145)
--- NOTE | 2019-08-08 20:36 | ECGEPIP ---
[facility] - ED Test Date: 2019-08-08 Pat Name: CRISTIAN Ferraropartment: Room: - Gender: Female Precision Dyer: CHRISTOS : 1985 Requested By: Aracely Calvo Order Number: [id number] Reading MD: Aracely Calvo Measurements Intervals [place] Rate: 58 P: 64 MD: 148 QRS: 70 QRSD: 95 T: 57 QT: 414 QTc: 407 Interpretive Statements SINUS BRADYCARDIA SIMILAR 08/04/18 Electronically Signed on 08-08-2019 20:35:56 EDT by Aracely Calvo
[2019-08-09] MEDS ORDERED: METAL LOCK LOOP XX ONE (02:07)
[2019-08-09] MEDS ORDERED: MOM 30ML SUSPENSION UDC PO PRN (13:00)
[2019-08-09] MEDS ORDERED: MAALOX 30 ML SUSP *UDC PO PRN (13:00)
[2019-08-09 14:00] VITALS: BP 119/65
[2019-08-09] MEDS: LISINOPRIL 10 MG TAB PO SCH (15:51)
--- NOTE | 2019-08-09 15:55 | HPE ---
DATE OF ADMISSION: 08/09/2019 CHIEF COMPLAINT: Depression and suicidal ideation. HISTORY OF PRESENT ILLNESS: This is a 33-year-old Indian female with positive latent tuberculosis treated with 3 months of antiviral by [facility], seen by Dr. Burnette in August 2018, reflux disease, obesity but currently with a 30 pound weight loss, hypertension, vitamin D deficiency, and Arnold-Chiari malformation thrombus removed at the age of 5 months old and tonsillectomy at age 1, admitted to the inpatient mental health unit due to risk of suicide due to life stressors. The patient often times has insomnia, sleeps only 2 to 3 hours daily, and has had a 30 pound weight loss without night sweats. The patient does not feel like waking up in the morning with severe depression, currently is admitted to the inpatient mental health unit. She otherwise denies any night sweats, shortness of breath, cough, fever, chills. She has had an intentional 30 pound weight loss due to severe depression and has not been eating or sleeping lately. The patient denies any nausea, vomiting, abdominal pain, diarrhea, constipation, hematemesis, hemoptysis, bright red blood per rectum, melena or black tarry stools. Denies any fatigue, shortness of breath, chest pain, pressure, tightness, lightheadedness, dizziness, dysuria, urgency or frequency, fevers, chills, flank pain. The hospitalist service was called to evaluate for any acute medical issues. PAST MEDICAL HISTORY: 1. Arnold-Chiari malformation, follows with Dr. Bone at [facility]. 2. Reflux disease, 3. Hypertension. 4. Vitamin D deficiency. 5. History of latent tuberculosis, completed treatment 3 months of antivirals by [facility]. 6. Obesity. 7. Vitamin D deficiency. ALLERGIES: No known drug allergies. SURGICAL HISTORY: 1. Tonsillectomy when she was a child. 2. Arnold-Chiari malformation in 2016, thrombus removed at age 5 months old. SOCIAL HISTORY: The patient drinks alcohol, vodka and Tequila when she goes out with her girlfriends, maybe two drinks when she does go out, which is not very often. She denies ever smoking any cigarettes. 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. The patient lives alone. No children. She has two dogs. HOME MEDICATIONS: - Prilosec 40 mg daily - Lisinopril 10 mg daily - vitamin D 50,000 units weekly FAMILY HISTORY: Father alive at age 68, prostate cancer, CVA in 2014, peripheral vascular disease, depression. Mother alive at age 67 with peripheral vascular disease, hypertension, diabetes, bipolar disorder. Brother with bipolar disorder, alcohol abuse, recreational drug use and hypercholesterolemia. REVIEW OF SYSTEMS: Per history of present illness. 12-point system otherwise negative. PHYSICAL EXAMINATION: VITAL SIGNS: Temperature 98.1, pulse 71, respiratory rate 18, blood pressure 112/71, 100% on room air. GENERAL: The patient is awake, alert, oriented times three. Answering questions appropriately. No icterus. No jaundice. No pallor. No cyanosis. Pupils are round and reactive. Wears eyeglasses. Tongue is midline. Uvula is midline. No thyromegaly or cervical lymphadenopathy. Moist mucous membranes. LUNGS: Clear to auscultation. No wheezing, rales or rhonchi. Air entry is equal bilaterally. HEART: S1, S2. Sinus rhythm. No murmurs, rubs or gallops. ABDOMEN: Soft, nontender, nondistended. Positive bowel sounds. EXTREMITIES: No cyanosis, clubbing or pitting edema. LABORATORY DATA: 08/08/2019: White count 10.5, hemoglobin 10, hematocrit 34, platelet count 312. Sodium 140, potassium 3.6, chloride 105, bicarbonate 30, BUN 6, creatinine 0.63, glucose of 86, calcium 8.9, total bilirubin 0.4, direct bilirubin 0.1, AST 11, ALT 12, alkaline phosphatase 52, total protein 7, albumin 3.6, TSH 1.37. EKG was negative. Toxicology screen was negative for opiates, methadone, barbiturates, amphetamines, benzodiazepine, cocaine, cannabinoids. Alcohol level less than 0.003, acetaminophen less than 2, salicylate less than 1.7. IMAGING STUDIES: 08/04/2018 chest x-ray showed no acute cardiopulmonary process. ASSESSMENT AND PLAN: This is a 33-year-old with latent tuberculosis, hypertension, reflux disease, vitamin D deficiency, Arnold-Chiari malformation and obesity with no known drug allergies with thymectomy, tonsillectomy and Arnold-Chiari malformation surgery in 2015, admitted to the inpatient mental health unit due to depression and risk of suicide with a 30 pound weight loss and insomnia. ACTIVE ISSUES: 1. Depression with suicidal ideation. The patient is admitted to the inpatient mental health unit with suicide watch, as well as treatment for severe depression by psychiatrist. 2. Latent tuberculosis. The patient stated that she completed 3 months of antiviral therapy. We will obtain records from [facility]. Obtain chest x-ray, PA and lateral. The patient currently does not have any symptoms and denies any night sweats, cough, shortness of breath, recurrent fevers, chills or hemoptysis. She does have weight loss but states that this was intentional as she has not been eating for the past few weeks status post severe depression. 3. Vitamin B deficiency. Check vitamin B and calcium levels and resume vitamin B supplementation. 4. Reflux disease. Continue on Prilosec. 5. Hypertension. Continue Lisinopril with holding parameters with systolic pressure less than 140 to prevent hypotension. 6. Arnold-Chiari malformation. Obtain records from Dr. Bone regarding medications the patient should be maintained on. 7. Deep vein thrombosis (DVT) prophylaxis. Encourage ambulation. MTDD
[2019-08-09] MEDS: OMEPRAZOLE 20 MG CAP PO SCH (15:57)
--- NOTE | 2019-08-09 16:57 | REP ---
Chest x-ray: Two views. History: Latent TB . Comparison study: August 04, 2018 January 25, 2017 chest x-ray is also reviewed. . Findings: The lungs are well inflated and free of infiltrate. The pleural angles are sharp. The heart size is normal. Pulmonary vasculature is not increased. No significant bony abnormality is seen. Impression: Negative chest x-ray. Electronically Signed by Clay Mathews MD 08/09/2019 04:48 P
[2019-08-10 06:38] VITALS: BP 134/88
[2019-08-10] MEDS: LISINOPRIL 10 MG TAB PO SCH (09:00)
[2019-08-10] MEDS: OMEPRAZOLE 20 MG CAP PO SCH (09:01)
--- NOTE | 2019-08-10 10:21 | MHHPEPDOC ---
General Date Of Admission: Aug 09, 2019 Legal Status: 9.39 Chief Complaint I've felt depressed for the past 1.5 months. History of Present Illness HISTORY OF THE PRESENT ILLNESS: Patient is a 33-year-old , female, who presented to [facility] ED with her older brother Larry because she has been having +SI with no plan, for the past week. 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 Patient reports she has no history of inpatient stays in a psych facility, or therapy. No past suicide attempts, but had vague SI thoughts when she was younger, no drug use, and very little EtOH use. Her brother, Larry, states she would not be safe to be [place] home, she is just not her happy self for over a month, and she is good at faking it. Psychiatric Review of Systems Depression (2 or more weeks): depressed mood, insomnia/hypersomnia, feelings of worthlesness, decreased energy, difficulty concentrating, appetite changes, suicidal thoughts Carlota (4 or more days of): denies Psychosis: denies PTSD: denies Anxiety: gen/non-specific anxiety Past Psychiatric History Previous Psychiatric Diagnosis: In [place] she dwent to group therapy for depression, found groups helpful Previous Psychiatric Admissions: Partial hospitalization (day treatment) back in [place] as well Suicide Attempts: none Psychiatric Follow-up: none Psychiatric medications: none Past Medical History Medical Problems 1. Arnold-Chiari malformation, follows with Dr. Bone at [facility]. 2. Reflux disease, 3. Hypertension. 4. Vitamin D deficiency. 5. History of latent tuberculosis, completed treatment 3 months of antivirals by public health. Negative CXR as of 08/09/19. 6. Obesity. Head Injury: No Seizures: No Hospitalizations: Yes Surgeries: Yes (Tonsillectomy when she was a child. Arnold-Chiari malformation in 2016, thrombus removed at age 5 months old.) Family Medical/Psychiatric HX Medical Problems Father alive at age 68, depression Mother alive at age 67 with bipolar disorder Brother with bipolar disorder, alcohol abuse, recreational drug use Psychiatric Disorders: Yes (mother and brother-bipolar disorder, father- depression) Addiction: Yes (brother-alcohol use, recreational drug use) Suicide Attemps/Completions: Yes Addiction History alcohol (will have 1-2 drinks when she goes out which isn't often. ), denies (illicit drug use) Social History Childhood: Grew up in [place] with mom, dad, and brother and came here when she was 27. Abuse/Trauma: none Current Living Situation: Patient lives alone. 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 Affect: full, appropriate, congruent Thought Process: logical/linear, depressed, intact Thought Content (Delusions): none reported, denies SI, HI, AVH Thought Content (Other): other (Feels worthless and helpless, like no one would miss her if she was gone. ) Thought Content (Aggressive): none reported Perception (Hallucinations): none reported Perception (Other): none reported Cognition (Impairment of): none reported Cognition(Intelligence Est.): average Oriented: Awake, Alert, Oriented times three Insight: fair Judgment: Fair Psychosis: Denies Diagnoses depression, unspecified r/o major depressive disorder A-FIB/CHADSVASC A-FIB History Current/History of A-Fib/PAF?: No Assessment Patient admits to crying and being depressed for the past 1.5 months. Feels like everything sucks, questions why she wakes up in the morning. She admits to a lot of stress at work, she hasn't heard from her boyfriend for 1.5 weeks, he lives in [place], and she guesses this means the relationship is over and is mad at him for not getting abck to her. She feels like she is thinking too much about that and all she does is work. Feels like she has nothing right now. discussed how through therapy she can maybe learn some coping mechanisms for dealing with the anxiety she has when she focuses on other people more than herself. She feels like no one would miss her if she was gone, we discussed that her family would and she admitted this was true. She endorses feeling a lot of pressure to be strong so she can help her family. We discussed that she would likely only be able to accomplish this if she was well and that it was important for her to focus on her own health and well being just as much if not more so than other people's. She has already been going to group. She hopes to learn how to deal with her anxiety and depressive feelings. Feels like she may benefit from trying an anti-depressant. Is interested in trying to start prozac and an as needed hydroxyzine for her anxiety. Discussed possible benefits/side effects/adverse effects of medications. Discussed the importance of group therapy. Initial Treatment Plan 1. Patient was admitted on a [9.39] status. 2. Complete history was obtained. 3. With patients permission, family will be contacted and database will be expanded. 4. Patients medication regimen will be reviewed and changed accordingly. 5. Patient will be provided with protected environment. 6. Patient will be treated with individual, group, and milieu therapies. 7. Patient will receive supportive psych-education. 8. Discharge planning will commence immediately. 9. Outpatient follow-up treatment will be strongly recommended. 10. The initial treatment plan will focus initially on: * Depression. * Risk for suicide. * Start Hydroxyzine every 6 hours as needed for anxiety * Encourage continued group therapy ESTIMATED LENGTH OF STAY: 7-10 DAYS. TIME SPENT COUNSELING AND COORDINATING INITIAL CARE: 60 minutes. Vital Signs Vital Signs Date Time Temp Pulse Resp B/P (MAP) Pulse Ox O2 Delivery O2 Flow Rate FiO2 08/10/19 06:38 99.1 67 14 134/88 (103) 08/09/19 14:00 97 08/09/19 13:01 Room Air Medications No Active Prescriptions or Reported Meds Allergies Coded Allergies: No Known Allergies (Unverified , 08/08/19) GME ATTESTATION GME ATTESTATION My faculty preceptor for this patient encounter was physically present during the encounter and was fully available. All aspects of the patient interview, examination, medical decision making process, and medical care plan development were reviewed and approved by the faculty preceptor. The faculty preceptor is aware and concurs with the plan as stated in the body of this note and will attest to such by his/her cosignature. ATTENDING NOTE Agree with resident note. Pt seen with resident. ZENAIDA LAM DO Aug 10, 2019 8:40 am JAVIER ROBBINS DO Aug 10, 2019 10:08 am
[2019-08-10] MEDS ORDERED: FLUoxetine 10 MG CAP PO ONE (13:00)
[2019-08-10 17:59] VITALS: BP 128/81
[2019-08-11 06:29] VITALS: BP 124/73
[2019-08-11] MEDS: LISINOPRIL 10 MG TAB PO SCH (09:00)
[2019-08-11] MEDS: OMEPRAZOLE 20 MG CAP PO SCH (09:05)
--- NOTE | 2019-08-11 10:20 | MHIPNPDOC ---
[facility] Progress Note Progress Note DATE OF SERVICE: 08/11/19 HISTORY: Patient is a 33-year-old , female, who presented to [facility] ED with her older brother Larry because she has been having +SI with no plan, for the past week. 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 Patient reports she has no history of inpatient stays in a psych facility, or therapy. No past suicide attempts, but had vague SI thoughts when she was younger, no drug use, and very little EtOH use. Her brother, Larry, states she would not be safe to be DC home, she is just not her happy self for over a month, and she is good at faking it. Patient admits to crying and being depressed for the past 1.5 months. Feels like everything sucks, questions why she wakes up in the morning. She admits to a lot of stress at work, she hasn't heard from her boyfriend for 1.5 weeks, he lives in [place], and she guesses this means the relationship is over and is mad at him for not getting abck to her. She feels like she is thinking too much about that and all she does is work. Feels like she has nothing right now. discussed how through therapy she can maybe learn some coping mechanisms for dealing with the anxiety she has when she focuses on other people more than herself. She feels like no one would miss her if she was gone, we discussed that her family would and she admitted this was true. She endorses feeling a lot of pressure to be strong so she can help her family. We discussed that she would likely only be able to accomplish this if she was well and that it was important for her to focus on her own health and well being just as much if not more so than other people's. She has already been going to group. She hopes to learn how to deal with her anxiety and depressive feelings. Feels like she may benefit from trying an anti-depressant. Is interested in trying to start prozac and an as needed hydroxyzine for her anxiety. Discussed possible benefits/side effects/adverse effects of medications. Discussed the importance of group therapy. VITAL SIGNS: See below. NEW TEST RESULTS: See below. CURRENT MEDICATIONS: See below. MENTAL STATUS EXAMINATION: General Appearance: well groomed, appears stated age Build: overweight Demeanor: average, very fidgety Eye Contact: average Activity: average, anxious Behavior: cooperative Speech: clear, spontaneous, normal volume, reg/rate,rhythm,volume Mood: depressed, anxious Mood "I woke up crying" Affect: depressed, tearful on and off, appropriate, congruent Thought Process: logical/linear, depressed, intact Thought Content (Delusions): none reported, denies SI, HI, AVH Thought Content (Other): other (Feels worthless and helpless, like no one would miss her if she was gone.) Thought Content (Aggressive): none reported Perception (Hallucinations): none reported Perception (Other): none reported Cognition (Impairment of): none reported Cognition(Intelligence Est.): average Oriented: Awake, Alert, Oriented times three Insight: fair Judgment: Fair Psychosis: Denies DIAGNOSES: depression, unspecified r/o major depressive disorder ASSESSMENT:Pt seen and states that she woke up in tears b/c "I just want to know if we're still together (her boyfriend in [place]) or if he has another girlfriend". States these thoughts are make her anxious and depressed as "I just want to know" so that she can stay with him or move on to finding another relationship. Also asked me "who to women find confidence?" as she lacks it. And asked pt to name things she good at (baking, cooking, employee) which was hard for her. Discussed with pt what CBT is and how it works to treat depression and encouraged to practise changing negative thoughts about herself to positive ones. States she'll practise. States she's being social on the milieu which is beneficial. States she slept well last night w/o thrazodone. Feels she is tolerating her medications and they're beneficial. She is attending groups and finding them helpful. She denies SI/HI, hallucinations, delusions. Pt feels safe here. MANAGEMENT PLAN: continue plan medications: prozac 20mg daily vistaril 25mg q6hr prn anxiety trazodone 50mg qhs prn insomnia TIME SPENT: 30 minutes. Vital Signs Vital Signs Date Time Temp Pulse Resp B/P (MAP) Pulse Ox O2 Delivery O2 Flow Rate FiO2 08/11/19 09:00 124/73 08/11/19 06:29 99.1 77 12 08/09/19 14:00 97 08/09/19 13:01 Room Air Current Medications Current Medications Medications (Trade) Dose Ordered Sig/Joe Route PRN Reason Start Time Stop Time Status Last Admin Dose Admin Acetaminophen (Tylenol Tab) 650 mg Q6HP PRN PO HEADACHE or DISCOMFORT 08/09/19 13:00 Al Hydrox/Mg Hydrox/Simethicone (Mylanta) 30 ml Q4HP PRN PO HEARTBURN/INDIGESTION 08/09/19 13:00 Home Med (Med Rec Complete!) ASDIRECTED XX 08/09/19 10:00 08/09/19 09:57 DC Lisinopril (Prinivil) 10 mg DAILY PO 08/09/19 09:00 Magnesium Hydroxide (Milk Of Magnesia) 30 ml DAILYPRN PRN PO CONSTIPATION 08/09/19 13:00 Omeprazole (PriLOSEC) 40 mg DAILY PO 08/09/19 09:00 08/11/19 09:05 Trazodone HCl (Desyrel) 50 mg QHSP PRN PO INSOMNIA 08/09/19 13:00 Vitamin D (Drisdol) 50,000 units Burch@09 PO 08/15/19 09:00 Allergies Coded Allergies: No Known Allergies (Unverified , 08/08/19) JAVIER ROBBINS DO Aug 11, 2019 10:19 am
[2019-08-11] MEDS: ACETAMINOPHEN TAB 650MG DOSE (2X325MG) PO PRN (11:52)
[2019-08-11 17:56] VITALS: BP 128/65
[2019-08-12 06:48] VITALS: BP 118/67
[2019-08-12] MEDS: LISINOPRIL 10 MG TAB PO SCH (09:00)
[2019-08-12] MEDS: OMEPRAZOLE 20 MG CAP PO SCH (09:48)
--- NOTE | 2019-08-12 10:38 | MHIPNPDOC ---
[facility] Progress Note Progress Note DATE OF SERVICE: 08/12/19 HISTORY: Patient is a 33-year-old , female, who presented to [facility] ED with her older brother Larry because she has been having +SI with no plan, for the past week. 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 Patient reports she has no history of inpatient stays in a psych facility, or therapy. No past suicide attempts, but had vague SI thoughts when she was younger, no drug use, and very little EtOH use. Her brother, Larry, states she would not be safe to be DC home, she is just not her happy self for over a month, and she is good at faking it. Patient admits to crying and being depressed for the past 1.5 months. Feels like everything sucks, questions why she wakes up in the morning. She admits to a lot of stress at work, she hasn't heard from her boyfriend for 1.5 weeks, he lives in [place], and she guesses this means the relationship is over and is mad at him for not getting abck to her. She feels like she is thinking too much about that and all she does is work. Feels like she has nothing right now. discussed how through therapy she can maybe learn some coping mechanisms for dealing with the anxiety she has when she focuses on other people more than herself. She feels like no one would miss her if she was gone, we discussed that her family would and she admitted this was true. She endorses feeling a lot of pressure to be strong so she can help her family. We discussed that she would likely only be able to accomplish this if she was well and that it was important for her to focus on her own health and well being just as much if not more so than other people's. She has already been going to group. She hopes to learn how to deal with her anxiety and depressive feelings. Feels like she may benefit from trying an anti-depressant. Is interested in trying to start prozac and an as needed hydroxyzine for her anxiety. Discussed possible benefits/side effects/adverse effects of medications. Discussed the importance of group therapy. VITAL SIGNS: See below. NEW TEST RESULTS: See below. CURRENT MEDICATIONS: See below. MENTAL STATUS EXAMINATION: General Appearance: well groomed, appears stated age Build: overweight Demeanor: average, less fidgety Eye Contact: average Activity: average, more flat Behavior: cooperative Speech: clear, spontaneous, normal volume, reg/rate,rhythm,volume Mood: depressed, flat Mood "I woke up crying again" Affect: depressed, tearful on and off, appropriate, congruent Thought Process: logical/linear, depressed, intact Thought Content (Delusions): none reported, denies SI, HI, AVH Thought Content (Other): other (Feels worthless and helpless, like no one would miss her if she was gone.) Thought Content (Aggressive): none reported Perception (Hallucinations): none reported Perception (Other): none reported Cognition (Impairment of): none reported Cognition(Intelligence Est.): average Oriented: Awake, Alert, Oriented times three Insight: fair Judgment: Fair Psychosis: Denies DIAGNOSES: depression, unspecified r/o major depressive disorder ASSESSMENT:Pt seen and states that she woke up in tears again b/c hasn't called her boyfriend in [place] to find out if they're still together or has another girlfriend in [place]. She states she doesn't think he'll answer the question and advised if that happens he most likely has some one else and she may be better off just ending the relationship and moving on with her life. Pt highly encouraged to call for an answer so she stops worrying about the relationship which is very much affecting her mood, making her depressed and tearful. States she may take some time to focus on herself and encouraged to do that if she likes as can help her to build confidence in herself. States she's being social on the milieu which is beneficial. States she slept well last night w/o thrazodone. Feels she is tolerating her prozac and it's beneficial. She is attending groups and finding them helpful. She denies SI/HI, hallucinations, delusions. Pt feels safe here. MANAGEMENT PLAN: continue plan medications: prozac 20mg daily vistaril 25mg q6hr prn anxiety trazodone 50mg qhs prn insomnia TIME SPENT: 30 minutes. Vital Signs Vital Signs Date Time Temp Pulse Resp B/P (MAP) Pulse Ox O2 Delivery O2 Flow Rate FiO2 08/12/19 09:00 118/67 08/12/19 06:48 99.2 87 16 08/09/19 14:00 97 08/09/19 13:01 Room Air Current Medications Current Medications Medications (Trade) Dose Ordered Sig/Joe Route PRN Reason Start Time Stop Time Status Last Admin Dose Admin Acetaminophen (Tylenol Tab) 650 mg Q6HP PRN PO HEADACHE or DISCOMFORT 08/09/19 13:00 08/11/19 11:52 Al Hydrox/Mg Hydrox/Simethicone (Mylanta) 30 ml Q4HP PRN PO HEARTBURN/INDIGESTION 08/09/19 13:00 Home Med (Med Rec Complete!) ASDIRECTED XX 08/09/19 10:00 08/09/19 09:57 DC Lisinopril (Prinivil) 10 mg DAILY PO 08/09/19 09:00 Magnesium Hydroxide (Milk Of Magnesia) 30 ml DAILYPRN PRN PO CONSTIPATION 08/09/19 13:00 Omeprazole (PriLOSEC) 40 mg DAILY PO 08/09/19 09:00 08/12/19 09:48 Trazodone HCl (Desyrel) 50 mg QHSP PRN PO INSOMNIA 08/09/19 13:00 Vitamin D (Drisdol) 50,000 units Burch@09 PO 08/15/19 09:00 Allergies Coded Allergies: No Known Allergies (Unverified , 08/08/19) JAVIER ROBBINS DO Aug 12, 2019 10:03 am
[2019-08-12] MEDS ORDERED: FLUoxetine 20 MG CAP PO ONE (11:00)
[2019-08-12 18:23] VITALS: BP 121/77
[2019-08-13 06:15] VITALS: BP 119/62
[2019-08-13] MEDS: LISINOPRIL 10 MG TAB PO SCH (09:00)
--- NOTE | 2019-08-13 09:21 | MHIPNPDOC ---
[facility] Progress Note Progress Note DATE OF SERVICE: 08/13/19 HISTORY: Patient is a 33-year-old , female, who presented to [facility] ED with her older brother Larry because she has been having +SI with no plan, for the past week. 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 Patient reports she has no history of inpatient stays in a psych facility, or therapy. No past suicide attempts, but had vague SI thoughts when she was younger, no drug use, and very little EtOH use. Her brother, Larry, states she would not be safe to be DC home, she is just not her happy self for over a month, and she is good at faking it. Patient admits to crying and being depressed for the past 1.5 months. Feels like everything sucks, questions why she wakes up in the morning. She admits to a lot of stress at work, she hasn't heard from her boyfriend for 1.5 weeks, he lives in [place], and she guesses this means the relationship is over and is mad at him for not getting abck to her. She feels like she is thinking too much about that and all she does is work. Feels like she has nothing right now. discussed how through therapy she can maybe learn some coping mechanisms for dealing with the anxiety she has when she focuses on other people more than herself. She feels like no one would miss her if she was gone, we discussed that her family would and she admitted this was true. She endorses feeling a lot of pressure to be strong so she can help her family. We discussed that she would likely only be able to accomplish this if she was well and that it was important for her to focus on her own health and well being just as much if not more so than other people's. She has already been going to group. She hopes to learn how to deal with her anxiety and depressive feelings. Feels like she may benefit from trying an anti-depressant. Is interested in trying to start prozac and an as needed hydroxyzine for her anxiety. Discussed possible benefits/side effects/adverse effects of medications. Discussed the importance of group therapy. VITAL SIGNS: See below. NEW TEST RESULTS: See below. CURRENT MEDICATIONS: See below. MENTAL STATUS EXAMINATION: General Appearance: well groomed, appears stated age Build: overweight Demeanor: average, less fidgety Eye Contact: average Activity: average, more flat Behavior: cooperative Speech: clear, spontaneous, normal volume, reg/rate,rhythm,volume Mood: less depressed, improved range Mood "better" Affect: less depressed, appropriate, congruent Thought Process: logical/linear, less depressed, intact Thought Content (Delusions): none reported, denies SI, HI, AVH Thought Content (Other): improved Feelings of worthless and helpless, like no one would miss her if she was gone. Thought Content (Aggressive): none reported Perception (Hallucinations): none reported Perception (Other): none reported Cognition (Impairment of): none reported Cognition(Intelligence Est.): average Oriented: Awake, Alert, Oriented times three Insight: fair Judgment: Fair Psychosis: Denies DIAGNOSES: depression, unspecified r/o major depressive disorder ASSESSMENT:Pt seen and states she's feels "better" today and didn't wake up crying this morning. States she didn't call her boyfriend yesterday b/c doesn't think he'll answer and plans to write him a letter instead after discussing with her nurse yesterday. States she talked to her friend yesterday on the phone which was good and her friend is supportive. States she's being social on the milieu which is beneficial. States she slept well last night w/o thrazodone. Feels she is tolerating her prozac and it's beneficial. She is attending groups and finding them helpful. She denies SI/HI, hallucinations, delusions. Pt feels safe here. MANAGEMENT PLAN: continue plan medications: prozac 20mg daily vistaril 25mg q6hr prn anxiety trazodone 50mg qhs prn insomnia TIME SPENT: 30 minutes. Vital Signs Vital Signs Date Time Temp Pulse Resp B/P (MAP) Pulse Ox O2 Delivery O2 Flow Rate FiO2 08/13/19 06:15 99.2 81 16 119/62 (81) 08/09/19 14:00 97 08/09/19 13:01 Room Air Current Medications Current Medications Medications (Trade) Dose Ordered Sig/Joe Route PRN Reason Start Time Stop Time Status Last Admin Dose Admin Acetaminophen (Tylenol Tab) 650 mg Q6HP PRN PO HEADACHE or DISCOMFORT 08/09/19 13:00 08/11/19 11:52 Al Hydrox/Mg Hydrox/Simethicone (Mylanta) 30 ml Q4HP PRN PO HEARTBURN/INDIGESTION 08/09/19 13:00 Fluoxetine HCl (PROzac) 20 mg DAILY PO 08/13/19 09:00 Home Med (Med Rec Complete!) ASDIRECTED XX 08/09/19 10:00 08/09/19 09:57 DC Lisinopril (Prinivil) 10 mg DAILY PO 08/09/19 09:00 Magnesium Hydroxide (Milk Of Magnesia) 30 ml DAILYPRN PRN PO CONSTIPATION 08/09/19 13:00 Omeprazole (PriLOSEC) 40 mg DAILY PO 08/09/19 09:00 08/12/19 09:48 Trazodone HCl (Desyrel) 50 mg QHSP PRN PO INSOMNIA 08/09/19 13:00 Vitamin D (Drisdol) 50,000 units Burch@09 PO 08/15/19 09:00 Allergies Coded Allergies: No Known Allergies (Unverified , 08/08/19) JAVIER ROBBINS DO Aug 13, 2019 9:21 am
[2019-08-13] MEDS: FLUoxetine 20 MG CAP PO SCH (10:24)
[2019-08-13] MEDS: OMEPRAZOLE 20 MG CAP PO SCH (10:25)
[2019-08-13 17:31] VITALS: BP 119/69
[2019-08-14 06:43] VITALS: BP 137/80
[2019-08-14] MEDS: ACETAMINOPHEN TAB 650MG DOSE (2X325MG) PO PRN (08:00)
[2019-08-14] MEDS: FLUoxetine 20 MG CAP PO SCH (08:04)
[2019-08-14] MEDS: OMEPRAZOLE 20 MG CAP PO SCH (08:04)
[2019-08-14] MEDS: LISINOPRIL 10 MG TAB PO SCH (08:08)
[2019-08-14 15:59] VITALS: BP 110/73
[2019-08-14 21:48] VITALS: BP 110/73
[2019-08-14] MEDS: traZODone 50 MG TAB PO PRN (22:41)
[2019-08-15 06:34] VITALS: BP 141/83
[2019-08-15] MEDS: FLUoxetine 20 MG CAP PO SCH (08:59)
[2019-08-15 09:00] VITALS: BP 136/75
[2019-08-15] MEDS ORDERED: VITAMIN D 50,000 UNITS CAPSULE (ERGOCALCIFEROL 1.25MG) PO SCH (09:00)
[2019-08-15] MEDS: OMEPRAZOLE 20 MG CAP PO SCH (09:00)
[2019-08-15] MEDS: LISINOPRIL 10 MG TAB PO SCH (09:00)
--- NOTE | 2019-08-15 09:00 | MHIPNPDOC ---
[facility] Progress Note Progress Note DATE OF SERVICE: 08/15/19 HISTORY: Patient is a 33-year-old , female, who presented to [facility] ED with her older brother Larry because she has been having +SI with no plan, for the past week. 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 Patient reports she has no history of inpatient stays in a psych facility, or therapy. No past suicide attempts, but had vague SI thoughts when she was younger, no drug use, and very little EtOH use. Her brother, Larry, states she would not be safe to be DC home, she is just not her happy self for over a month, and she is good at faking it. Patient admits to crying and being depressed for the past 1.5 months. Feels like everything sucks, questions why she wakes up in the morning. She admits to a lot of stress at work, she hasn't heard from her boyfriend for 1.5 weeks, he lives in [place], and she guesses this means the relationship is over and is mad at him for not getting abck to her. She feels like she is thinking too much about that and all she does is work. Feels like she has nothing right now. discussed how through therapy she can maybe learn some coping mechanisms for dealing with the anxiety she has when she focuses on other people more than herself. She feels like no one would miss her if she was gone, we discussed that her family would and she admitted this was true. She endorses feeling a lot of pressure to be strong so she can help her family. We discussed that she would likely only be able to accomplish this if she was well and that it was important for her to focus on her own health and well being just as much if not more so than other people's. She has already been going to group. She hopes to learn how to deal with her anxiety and depressive feelings. Feels like she may benefit from trying an anti-depressant. Is interested in trying to start prozac and an as needed hydroxyzine for her anxiety. Discussed possible benefits/side effects/adverse effects of medications. Discussed the importance of group therapy. VITAL SIGNS: See below. NEW TEST RESULTS: See below. CURRENT MEDICATIONS: See below. MENTAL STATUS EXAMINATION: General Appearance: well groomed, appears stated age Build: overweight Demeanor: average, less fidgety Eye Contact: average Activity: average, more flat Behavior: cooperative Speech: clear, spontaneous, normal volume, reg/rate,rhythm,volume Mood: less depressed, improved range Mood "ok" Affect: less depressed, appropriate, congruent Thought Process: logical/linear, less depressed, intact Thought Content (Delusions): none reported, denies SI, HI, AVH Thought Content (Other): improved Feelings of worthless and helpless, like no one would miss her if she was gone. Thought Content (Aggressive): none reported Perception (Hallucinations): none reported Perception (Other): none reported Cognition (Impairment of): none reported Cognition(Intelligence Est.): average Oriented: Awake, Alert, Oriented times three Insight: fair Judgment: Fair Psychosis: Denies DIAGNOSES: depression, unspecified r/o major depressive disorder ASSESSMENT:Pt seen and states she's feels "ok" today and is learning to take "one day at a time." States she's no longer waking up crying. States she hasn't called her boyfriend but believes he will eventually call her b/c "that what always happens." States she's learning to cope better and focus on herself and her needs more. SStates she's being social on the milieu which is beneficial. States she slept well last night w/o trazodone. Feels she is tolerating her prozac and it's beneficial. She is attending groups and finding them helpful. She denies SI/HI, hallucinations, delusions. Pt feels safe here. MANAGEMENT PLAN: d/c planning home tomorrow. medications: prozac 20mg daily vistaril 25mg q6hr prn anxiety trazodone 50mg qhs prn insomnia TIME SPENT: 30 minutes. Vital Signs Vital Signs Date Time Temp Pulse Resp B/P (MAP) Pulse Ox O2 Delivery O2 Flow Rate FiO2 08/15/19 06:34 98.7 70 14 141/83 (102) 08/14/19 21:48 08/09/19 13:01 Room Air Current Medications Current Medications Medications (Trade) Dose Ordered Sig/Joe Route PRN Reason Start Time Stop Time Status Last Admin Dose Admin Acetaminophen (Tylenol Tab) 650 mg Q6HP PRN PO HEADACHE or DISCOMFORT 08/09/19 13:00 08/14/19 08:00 Al Hydrox/Mg Hydrox/Simethicone (Mylanta) 30 ml Q4HP PRN PO HEARTBURN/INDIGESTION 08/09/19 13:00 Fluoxetine HCl (PROzac) 20 mg DAILY PO 08/13/19 09:00 08/14/19 08:04 Home Med (Med Rec Complete!) ASDIRECTED XX 08/09/19 10:00 08/09/19 09:57 DC Lisinopril (Prinivil) 10 mg DAILY PO 08/09/19 09:00 Magnesium Hydroxide (Milk Of Magnesia) 30 ml DAILYPRN PRN PO CONSTIPATION 08/09/19 13:00 Omeprazole (PriLOSEC) 40 mg DAILY PO 08/09/19 09:00 08/14/19 08:04 Trazodone HCl (Desyrel) 50 mg QHSP PRN PO INSOMNIA 08/09/19 13:00 08/14/19 22:41 Vitamin D (Drisdol) 50,000 units Burch@09 PO 08/15/19 09:00 Allergies Coded Allergies: No Known Allergies (Unverified , 08/08/19) JAVIER ROBBINS DO Aug 15, 2019 9:00 am
[2019-08-15 15:55] VITALS: BP 126/67
[2019-08-15] MEDS: traZODone 50 MG TAB PO PRN (23:04)
[2019-08-16 06:23] VITALS: BP 115/63
[2019-08-16] MEDS: OMEPRAZOLE 20 MG CAP PO SCH (08:36)
[2019-08-16] MEDS: FLUoxetine 20 MG CAP PO SCH (08:36)
[2019-08-16 08:37] VITALS: BP 115/63
[2019-08-16] MEDS: LISINOPRIL 10 MG TAB PO SCH (08:37)
--- NOTE | 2019-08-16 08:41 | MHDSPDOC ---
[facility] Discharge Summary Discharge Summary DATE OF ADMISSION: Aug 09, 2019 at 12:50 pm DATE OF DISCHARGE: Aug 16, 2019 DISCHARGE DIAGNOSES: depression, unspecified r/o major depressive disorder REASON FOR ADMISSION: Patient is a 33-year-old , female, who presented to [facility] ED with her older brother Larry because she has been having +SI with no plan, for the past week. 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 Patient reports she has no history of inpatient stays in a psych facility, or therapy. No past suicide attempts, but had vague SI thoughts when she was younger, no drug use, and very little EtOH use. Her brother, Larry, states she would not be safe to be DC home, she is just not her happy self for over a month, and she is good at faking it. Patient admits to crying and being depressed for the past 1.5 months. Feels like everything sucks, questions why she wakes up in the morning. She admits to a lot of stress at work, she hasn't heard from her boyfriend for 1.5 weeks, he lives in [place], and she guesses this means the relationship is over and is mad at him for not getting abck to her. She feels like she is thinking too much about that and all she does is work. Feels like she has nothing right now. discussed how through therapy she can maybe learn some coping mechanisms for dealing with the anxiety she has when she focuses on other people more than herself. She feels like no one would miss her if she was gone, we discussed that her family would and she admitted this was true. She endorses feeling a lot of pressure to be strong so she can help her family. We discussed that she would likely only be able to accomplish this if she was well and that it was important for her to focus on her own health and well being just as much if not more so than other people's. She has already been going to group. She hopes to learn how to deal with her anxiety and depressive feelings. Feels like she may benefit from trying an anti-depressant. Is interested in trying to start prozac and an as needed hydroxyzine for her anxiety. Discussed possible benefits/side effects/adverse effects of medications. Discussed the importance of group therapy. CONSULTANTS INVOLVED: none TREATMENT AND PROGRESS ON THE UNIT : Pt was admitted to [facility], seen for psychiatric assessment and started on prozac 20mg daily for mood and anxiety. She was provided trazodone 50mg qhs prn insomnia. Pt found her medications beneficial and tolerated them well. She attended groups daily during her stay. Her symptoms improved with treatment. On day of discharge she denied depression, anxiety, insomnia, SI/HI, hallucinations, delusions. She was discharged home after family meeting with her mother with follow-up at [facility]. She felt safe for discharge. DISCHARGE ASSESSMENT: Pt seen and states she's feels "good" today and is looking forward to going home. States she has a supportive mother and friends. States she is learning to take "one day at a time." States she's no longer waking up crying. States she's learning to cope better and focus on herself and her needs more. States she's being social on the milieu which is beneficial. States she slept well last night w/o trazodone. Feels she is tolerating her prozac and it's beneficial. She is attending groups and finding them helpful. She denies depression, anxiety, insomnia, SI/HI, hallucinations, delusions. Pt feels safe to be discharged home today. MENTAL STATUS EXAMINATION ON DISCHARGE: General Appearance: well groomed, appears stated age Build: overweight Demeanor: average Eye Contact: average Activity: average Behavior: cooperative Speech: clear, spontaneous, normal volume, reg/rate,rhythm,volume Mood: euthymic, full range Mood "good" Affect: euthymic, appropriate, congruent Thought Process: logical/linear, less depressed, intact Thought Content (Delusions): none reported, denies SI, HI, AVH Thought Content (Other): none reported Thought Content (Aggressive): none reported Perception (Hallucinations): none reported Perception (Other): none reported Cognition (Impairment of): none reported Cognition(Intelligence Est.): average Oriented: Awake, Alert, Oriented times three Insight: fair Judgment: Fair Psychosis: Denies MEDICATIONS ON DISCHARGE: prozac 20mg daily trazodone 50mg qhs prn insomnia PLAN/FOLLOWUP ARRANGEMENTS: D/c home with follow-up at [facility]. The amount of time spent in the coordination of care for this patient was approximately 30 minutes. Vital Signs/I&Os Vital Signs Date Time Temp Pulse Resp B/P (MAP) Pulse Ox O2 Delivery O2 Flow Rate FiO2 08/16/19 06:23 99.4 86 14 115/63 (80) 08/14/19 21:48 Medications Scheduled Fluoxetine Hcl (Fluoxetine HCl) 20 Mg Capsule, 20 MG PO DAILY for mood, #10 Scheduled PRN Trazodone HCl (Trazodone HCl) 50 Mg Tablet, 50 MG PO QHSP PRN for INSOMNIA, #10 Allergies Coded Allergies: No Known Allergies (Unverified , 08/08/19) JAVIER ROBBINS DO Aug 16, 2019 8:41 am
[2019-08-16] MEDS ORDERED: FLUO20CA19 PO (08:44)
[2019-08-16] MEDS ORDERED: TRAZ-252 PO (08:44)
== END 2019-08-16 11:35 | disposition home or self-care (01) | DRG 754 ==
LOC: M ED 16:32 → M PSY 08-09 12:50 → M ED INP 08-09 12:50 → M PSY 08-09 13:50
PROVIDERS: ADMIT Psychiatry & Neurology Psychiatry; ATTEND Psychiatry & Neurology Psychiatry
DX: F32.9 Major depressive disorder, single episode, unspecified (principal); I10 Essential (primary) hypertension; Z56.6 Other physical and mental strain related to work; K21.9 Gastro-esophageal reflux disease without esophagitis; E55.9 Vitamin D deficiency, unspecified; E66.9 Obesity, unspecified; Z63.0 Problems in relationship with spouse or partner; G47.00 Insomnia, unspecified; R63.4 Abnormal weight loss; E53.8 Deficiency of other specified B group vitamins; Z86.15 Personal history of latent tuberculosis infection; Z68.36 Body mass index [BMI] 36.0-36.9, adult; Z79.899 Other long term (current) drug therapy; Q07.00 Arnold-Chiari syndrome without spina bifida or hydrocephalus

== ENCOUNTER → 2020-03-17 | Outpatient (CLI) | payer BC ==
[~2020-03-17] MED LIST changes: +CYCL-707 PO; -CYCL10TA PO; +FLUO20CA22 PO; -OMEP40CA2 PO; +OMEP40CA97 PO; +TRAZ-252 PO; +ZONI25CA13 PO; -ZONI25CA2 PO; +ZONI50CA11 PO; -ZONI50CA3 PO
[2020-03-17 11:14] LABS: BASO % 0.4 % (0.0-1.0); EOS # 0.1 10^3/uL (0.0-0.5); EOS % 1.7 % (0.0-3.0); HEMATOCRIT 36.3 % (36.0-47.0); HEMOGLOBIN 11.1 g/dl (12.0-15.5); LYMPH # 1.9 10^3/uL (1.5-5.0); LYMPH % 24.8 % (24.0-44.0); MEAN CORPUSCULAR HEMOGLOBIN 23.7 pg (27.0-33.0); MEAN CORPUSCULAR HGB CONC 30.6 g/dl (32.0-36.5); MEAN CORPUSCULAR VOLUME 77.6 fl (80.0-96.0); MONO # 0.5 10^3/uL (0.0-0.8); MONO % 6.7 % (0.0-5.0); NEUTROPHILS # 5.1 10^3/uL (1.5-8.5); NEUTROPHILS % 66.3 % (36.0-66.0); PLATELET COUNT, AUTOMATED 335 10^3/uL (150-450); RED BLOOD COUNT 4.68 10^6/uL (4.00-5.40); WHITE BLOOD COUNT 7.6 10^3/uL (4.0-10.0)
[2020-03-17 11:36] LABS: HEMOGLOBIN A1c 5.6 %
[2020-03-17 12:43] LABS: ALBUMIN 3.5 GM/DL (3.2-5.2); ALT/SGPT 17 U/L (12-78); BILIRUBIN,TOTAL 0.3 MG/DL (0.2-1.0); BLOOD UREA NITROGEN 10 MG/DL (7-18); CALCIUM LEVEL 8.6 MG/DL (8.5-10.1); CARBON DIOXIDE LEVEL 27 MEQ/L (21-32); CHLORIDE LEVEL 108 MEQ/L (98-107); CHOLESTEROL LEVEL 173 MG/DL (<200); CHOLESTEROL RISK RATIO 3.203 (<5); CREATININE FOR GFR 0.58 MG/DL (0.55-1.30); FREE T3 2.9 PG/ML (2.2-4.0); FREE T4 1.01 NG/DL (0.76-1.46); GLOMERULAR FILTRATION RATE > 60.0 (>60); GLUCOSE, FASTING 94 MG/DL (70-100); HDL CHOLESTEROL 54 MG/DL (>40); LDL CHOLESTEROL 107 MG/DL (<100); NON-HDL-C 119 MG/DL; POTASSIUM SERUM 4.3 MEQ/L (3.5-5.1); SODIUM LEVEL 141 MEQ/L (136-145); THYROID PEROXIDASE ANTIBODY 33.7 U/ML (<60.0); THYROXINE (T4) 8.2 UG/DL (4.5-12.0); TOTAL PROTEIN 7.4 GM/DL (6.4-8.2); TRIGLYCERIDES LEVEL 60 MG/DL (<150)
== END ==
LOC: M LAB 10:41
PROVIDERS: ATTEND Nurse Practitioner Adult Health
DX: Z00.01 Encounter for general adult medical examination with abnormal findings (principal)

== ENCOUNTER → 2020-06-21 | Outpatient (CLI) | payer BC ==
[2020-06-21 08:26] LABS: BASO % 0.3 % (0.0-1.0); EOS # 0.2 10^3/uL (0.0-0.5); EOS % 1.7 % (0.0-3.0); HEMATOCRIT 33.2 % (36.0-47.0); HEMOGLOBIN 9.8 g/dl (12.0-15.5); LYMPH # 1.6 10^3/uL (1.5-5.0); LYMPH % 17.5 % (24.0-44.0); MEAN CORPUSCULAR HEMOGLOBIN 22.3 pg (27.0-33.0); MEAN CORPUSCULAR HGB CONC 29.5 g/dl (32.0-36.5); MEAN CORPUSCULAR VOLUME 75.5 fl (80.0-96.0); MONO # 0.7 10^3/uL (0.0-0.8); MONO % 7.9 % (0.0-5.0); NEUTROPHILS # 6.8 10^3/uL (1.5-8.5); NEUTROPHILS % 72.4 % (36.0-66.0); PLATELET COUNT, AUTOMATED 373 10^3/uL (150-450); WHITE BLOOD COUNT 9.4 10^3/uL (4.0-10.0)
[2020-06-21 09:01] LABS: HEMOGLOBIN A1c 5.7 %
[2020-06-21 09:39] LABS: ALT/SGPT 16 U/L (12-78); BILIRUBIN,TOTAL 0.2 MG/DL (0.2-1.0); BLOOD UREA NITROGEN 11 MG/DL (7-18); CALCIUM LEVEL 8.7 MG/DL (8.5-10.1); CARBON DIOXIDE LEVEL 28 MEQ/L (21-32); CHLORIDE LEVEL 110 MEQ/L (98-107); CHOLESTEROL LEVEL 167 MG/DL (<200); GLOMERULAR FILTRATION RATE > 60.0 (>60); GLUCOSE, FASTING 98 MG/DL (70-100); POTASSIUM SERUM 4.3 MEQ/L (3.5-5.1); SODIUM LEVEL 142 MEQ/L (136-145); TRIGLYCERIDES LEVEL 103 MG/DL (<150)
[2020-06-21 09:40] LABS: ALBUMIN 3.3 GM/DL (3.2-5.2); HDL CHOLESTEROL 50 MG/DL (>40); LDL CHOLESTEROL 96 MG/DL (<100); NON-HDL-C 117 MG/DL
== END ==
LOC: M LAB 07:45
PROVIDERS: ATTEND Nurse Practitioner Adult Health
DX: R73.9 Hyperglycemia, unspecified (principal); E78.00 Pure hypercholesterolemia, unspecified; N92.6 Irregular menstruation, unspecified; F33.1 Major depressive disorder, recurrent, moderate; D64.9 Anemia, unspecified

== ENCOUNTER → 2021-01-30 | Outpatient (CLI) | payer BC ==
[2021-01-30 17:08] LABS: HCG, SERUM QUALITATIVE POSITIVE (NEGATIVE)
[2021-01-30 17:23] LABS: HCG, SERUM QUANTITATIVE 8209 MIU/ML
== END ==
LOC: M WUC 11:52
PROVIDERS: ATTEND Nurse Practitioner Adult Health
DX: Z32.01 Encounter for pregnancy test, result positive (principal)

== ENCOUNTER 2021-02-01 21:38 | Emergency (ER) | payer BC ==
[~2021-02-01] VITALS: Ht 160 cm; Wt 123.6 kg
[2021-02-01 21:39] VITALS: BP 128/85
[2021-02-01] MEDS ORDERED: PREN1CHW6 PO (21:48)
[2021-02-01 22:25] LABS: BASO % 0.2 % (0.0-1.0); EOS # 0.1 10^3/uL (0.0-0.5); EOS % 1.2 % (0.0-3.0); HEMATOCRIT 33.7 % (36.0-47.0); HEMOGLOBIN 9.8 g/dl (12.0-15.5); LYMPH # 1.9 10^3/uL (1.5-5.0); MEAN CORPUSCULAR HEMOGLOBIN 21.1 pg (27.0-33.0); MEAN CORPUSCULAR HGB CONC 29.1 g/dl (32.0-36.5); MEAN CORPUSCULAR VOLUME 72.5 fl (80.0-96.0); MONO # 0.7 10^3/uL (0.0-0.8); NEUTROPHILS % 74.2 % (36.0-66.0); PLATELET COUNT, AUTOMATED 313 10^3/uL (150-450); RED BLOOD COUNT 4.65 10^6/uL (4.00-5.40); WHITE BLOOD COUNT 10.8 10^3/uL (4.0-10.0)
[2021-02-01 23:06] LABS: BLOOD UREA NITROGEN 8 MG/DL (7-18); CALCIUM LEVEL 9.2 MG/DL (8.5-10.1); CARBON DIOXIDE LEVEL 26 MEQ/L (21-32); CHLORIDE LEVEL 106 MEQ/L (98-107); CREATININE FOR GFR 0.55 MG/DL (0.55-1.30); GLOMERULAR FILTRATION RATE > 60.0 (>60); GLUCOSE, FASTING 90 MG/DL (70-100); HCG, SERUM QUANTITATIVE 14032 MIU/ML; POTASSIUM SERUM 3.8 MEQ/L (3.5-5.1); SODIUM LEVEL 137 MEQ/L (136-145)
--- NOTE | 2021-02-02 01:17 | REPVR ---
PROCEDURE INFORMATION: Exam: US First Trimester, Transabdominal and US , Transvaginal Exam date and time: 02/02/2021 12:00 AM Age: 35 years old Clinical indication: Lmp or gestational age (in weeks): 6 weeks 2 days; Other: Vag bleeding with clots; ; Additional info: Vaginal bleeding, 4 wks preg TECHNIQUE: Imaging protocol: Real-time transabdominal obstetrical ultrasound of the maternal pelvis and a first trimester , less than 14 weeks 0 days, with image documentation. Transvaginal imaging was used for better evaluation of the fetus, adnexa, and/or cervix. COMPARISON: No relevant prior studies available. FINDINGS: Gestation: No yolk sac or pole. BIOMETRY: Gestational age (AUA): Estimated gestational age is 6 weeks and 3 days. Mean sac diameter: Intrauterine gestational sac with mean sac diameter measuring 16 mm. MATERNAL: Uterus: Uterus measures 13.0 x 9.0 x 14.5 cm. Right-sided uterine fibroid measures 12.0 x 9.7 x 10.6 cm with associated cystic focus measuring up to 4.5 cm. Left-sided fibroid measures 4.0 x 4.7 x 3.9 cm. Cervix: Unremarkable. Right adnexa: Right ovary is not visualized. Left adnexa: Left ovary is not visualized. Intraperitoneal space: No free fluid. IMPRESSION: 1. Intrauterine gestation sac with mean sac diameter measuring 16 mm. No yolk sac or pole. Follow-up may be considered to assess viability. 2. Fibroid uterus. Electronically signed by: Marty Hernandez On 02/02/2021 01:17:14 AM
== END 2021-02-02 01:36 | disposition home or self-care (01) ==
LOC: M ED 21:38
DX: O26.851 Spotting complicating pregnancy, first trimester (principal); O36.80X0 Pregnancy with inconclusive fetal viability, not applicable or unspecified; Z3A.01 Less than 8 weeks gestation of pregnancy

== ENCOUNTER → 2021-02-04 | Outpatient (CLI) | payer BC ==
[~2021-02-04] MED LIST changes: +PREN1CHW6 PO
== END ==
LOC: M LAB 12:51
PROVIDERS: ATTEND Physician Assistant
DX: O46.90 Antepartum hemorrhage, unspecified, unspecified trimester (principal); Z3A.00 Weeks of gestation of pregnancy not specified

== ENCOUNTER → 2021-02-07 | Outpatient (CLI) | payer BC | LOC: M LAB 09:48 | PROVIDERS: ATTEND Obstetrics & Gynecology | DX: O02.1 Missed abortion (principal) ==

== ENCOUNTER → 2021-02-09 | Outpatient (CLI) | payer BC | LOC: M LAB 11:02 | PROVIDERS: ATTEND Obstetrics & Gynecology | DX: O02.1 Missed abortion (principal) ==

== ENCOUNTER → 2021-02-21 | Outpatient (CLI) | payer BC ==
--- NOTE | 2021-02-21 08:15 | REP ---
INDICATION: DATING AND VIABILITY COMPARISON: None. TECHNIQUE: Transabdominal 1st trimester obstetrical ultrasound with color Doppler evaluation. FINDINGS: Single live early intrauterine is appreciated. Charlack-rump length of 2.4 cm corresponds to 9 weeks 1 day gestational age with estimated date of delivery 09/25/2021. heart rate equals 171 beats per minute. No gross abnormalities are identified. IMPRESSION: Single live early intrauterine at 9 weeks 1 day gestational age. Complete anatomical assessment should be performed and 19-20 weeks. <Electronically signed by Conner Trotter > 02/21/21 [id number]
== END ==
LOC: M LAB 07:29
PROVIDERS: ATTEND Obstetrics & Gynecology
DX: O46.8X1 Other antepartum hemorrhage, first trimester (principal); Z3A.09 9 weeks gestation of pregnancy

== ENCOUNTER 2021-03-15 13:02 | Emergency (ER) | payer BC ==
[~2021-03-15] VITALS: Ht 160 cm; Wt 123.2 kg
[2021-03-15 14:09] LABS: BASO % 0.3 % (0.0-1.0); EOS # 0.1 10^3/uL (0.0-0.5); HEMATOCRIT 31.4 % (36.0-47.0); HEMOGLOBIN 9.6 g/dl (12.0-15.5); LYMPH # 1.3 10^3/uL (1.5-5.0); LYMPH % 12.3 % (24.0-44.0); MEAN CORPUSCULAR HEMOGLOBIN 21.9 pg (27.0-33.0); MEAN CORPUSCULAR HGB CONC 30.6 g/dl (32.0-36.5); MEAN CORPUSCULAR VOLUME 71.7 fl (80.0-96.0); MONO # 0.7 10^3/uL (0.0-0.8); MONO % 6.8 % (2.0-8.0); NEUTROPHILS # 8.5 10^3/uL (1.5-8.5); NEUTROPHILS % 79.2 % (36.0-66.0); PLATELET COUNT, AUTOMATED 312 10^3/uL (150-450); RED BLOOD COUNT 4.38 10^6/uL (4.00-5.40); WHITE BLOOD COUNT 10.8 10^3/uL (4.0-10.0)
[2021-03-15 14:52] LABS: BLOOD UREA NITROGEN 6 MG/DL (7-18); CALCIUM LEVEL 9.5 MG/DL (8.5-10.1); CARBON DIOXIDE LEVEL 27 MEQ/L (21-32); CHLORIDE LEVEL 106 MEQ/L (98-107); CREATININE FOR GFR 0.84 MG/DL (0.55-1.30); GLOMERULAR FILTRATION RATE > 60.0 (>60); GLUCOSE, FASTING 87 MG/DL (70-100); HCG, SERUM QUANTITATIVE 96298 MIU/ML; SODIUM LEVEL 137 MEQ/L (136-145)
--- NOTE | 2021-03-15 15:28 | REP ---
INDICATION: pelvic pain/bleeding; LMP-12/20/20 COMPARISON: 02/21/2021 TECHNIQUE: Transabdominal and transvaginal 1st trimester obstetrical ultrasound with color Doppler evaluation. FINDINGS: Single live early intrauterine is appreciated. [place]-rump length of 5.7 cm corresponds to 12 weeks 2 days gestational age with estimated date of delivery 09/25/2021. heart rate equals 170 beats per minute. Placenta previa cannot be excluded but likely to resolve as progresses. 3.6 x 4.1 x 3.7 cm and 11.1 x 10.0 x 11.1 cm complex uterine lesions possibly representing fibroids noted. IMPRESSION: 1. Single live early intrauterine at 12 weeks 2 days gestational age. Complete anatomical assessment should be performed and 19-20 weeks. 2. Possible placenta previa likely to resolve as progresses. 3. Uterine lesions likely representing fibroids as noted above and similar to findings on prior examination. <Electronically signed by Conner Trotter > 03/15/21 1520
[2021-03-15 16:52] VITALS: BP 134/54
--- NOTE | 2021-03-16 07:20 | ED PDOC ---
Post-Departure Follow-Up radiology report faxed to milton villegas Sarah MD March 16, 2021 07:20
== END 2021-03-15 16:54 | disposition home or self-care (01) ==
LOC: M ED 13:02
DX: O20.8 Other hemorrhage in early pregnancy (principal); Z3A.12 12 weeks gestation of pregnancy; O99.511 Diseases of the respiratory system complicating pregnancy, first trimester; O99.611 Diseases of the digestive system complicating pregnancy, first trimester; O99.341 Other mental disorders complicating pregnancy, first trimester; O34.11 Maternal care for benign tumor of corpus uteri, first trimester; O09.511 Supervision of elderly primigravida, first trimester

== ENCOUNTER → 2021-04-06 | Outpatient (CLI) | payer BC ==
[2021-04-06 11:16] LABS: BASO % 0.1 % (0.0-1.0); EOS # 0.1 10^3/uL (0.0-0.5); EOS % 0.7 % (0.0-3.0); HEMATOCRIT 32.2 % (36.0-47.0); HEMOGLOBIN 9.6 g/dl (12.0-15.5); LYMPH # 1.4 10^3/uL (1.5-5.0); LYMPH % 14.4 % (24.0-44.0); MEAN CORPUSCULAR HEMOGLOBIN 21.6 pg (27.0-33.0); MEAN CORPUSCULAR HGB CONC 29.8 g/dl (32.0-36.5); MEAN CORPUSCULAR VOLUME 72.5 fl (80.0-96.0); MONO # 0.6 10^3/uL (0.0-0.8); MONO % 6.6 % (2.0-8.0); NEUTROPHILS # 7.6 10^3/uL (1.5-8.5); NEUTROPHILS % 77.7 % (36.0-66.0); PLATELET COUNT, AUTOMATED 333 10^3/uL (150-450); RED BLOOD COUNT 4.44 10^6/uL (4.00-5.40); WHITE BLOOD COUNT 9.7 10^3/uL (4.0-10.0)
[2021-04-06 11:17] LABS: APPEARANCE, URINE CLOUDY (CLEAR); BACTERIA, URINE AUTO NEGATIVE (NEGATIVE); BILIRUBIN, URINE AUTO NEGATIVE (NEGATIVE); BLOOD, URINE BLOOD NEGATIVE (NEGATIVE); COLOR, URINE AMBER (YELLOW); GLUCOSE, URINE (UA) AUTO NEGATIVE (NEGATIVE); KETONE, URINE AUTO 1+ mg/dL (NEGATIVE); LEUKOCYTE ESTERASE, URINE AUTO NEGATIVE (NEGATIVE); MUCUS, URINE SMALL (NEGATIVE); NITRITE, URINE AUTO NEGATIVE (NEGATIVE); PROTEIN, URINE AUTO 1+ mg/dL (NEGATIVE); RBC, URINE AUTO 3 /HPF (0-3); SPECIFIC GRAVITY URINE AUTO 1.023 (1.002-1.035); SQUAMOUS EPITHELIAL CELL UR AU 5 /HPF (0-6); UROBILINOGEN, URINE AUTO 0.2 mg/dL (0.0-2.0); WBC, URINE AUTO 3 /HPF (0-3)
[2021-04-06 11:51] LABS: ALBUMIN 2.9 GM/DL (3.2-5.2); ALT/SGPT 29 U/L (12-78); BILIRUBIN,TOTAL 0.3 MG/DL (0.2-1.0); BLOOD UREA NITROGEN 5 MG/DL (7-18); CALCIUM LEVEL 8.9 MG/DL (8.5-10.1); CARBON DIOXIDE LEVEL 23 MEQ/L (21-32); CHLORIDE LEVEL 105 MEQ/L (98-107); CREATININE FOR GFR 0.42 MG/DL (0.55-1.30); FREE T4 1.07 NG/DL (0.76-1.46); GLOMERULAR FILTRATION RATE > 60.0 (>60); GLUCOSE, FASTING 76 MG/DL (70-100); POTASSIUM SERUM 3.7 MEQ/L (3.5-5.1); SODIUM LEVEL 137 MEQ/L (136-145); THYROID STIMULATING HORMONE 0.939 uIU/ML (0.358-3.740); THYROXINE (T4) 16.8 UG/DL (4.5-12.0); TOTAL PROTEIN 6.7 GM/DL (6.4-8.2)
[2021-04-06 11:52] LABS: TOTAL 25(OH) VITAMIN D 7.9 NG/ML (30.0-100.0); TOTAL T3 254.4 NG/DL (60.0-181.0)
[2021-04-06 12:04] LABS: HEPATITIS B SURFACE ANTIGEN NEGATIVE (NEGATIVE)
[2021-04-06 12:32] LABS: HIV 1&2 SCREEN CENTAUR NEGATIVE (NEGATIVE)
== END ==
LOC: M LAB 09:59
PROVIDERS: ATTEND Obstetrics & Gynecology
DX: Z34.82 Encounter for supervision of other normal pregnancy, second trimester (principal)

== ENCOUNTER 2021-06-10 12:25 | Outpatient (CLI) | payer BC ==
[~2021-06-10] VITALS: Ht 160 cm; Wt 124.7 kg
[~2021-06-10 12:25] MED LIST changes: +OMEP40CA4 PO; -OMEP40CA97 PO
[2021-06-10 12:44] VITALS: BP 125/75
[2021-06-10] MEDS ORDERED: HOME MED LIST COMPLETE! XX SCH (13:30)
[2021-06-10 14:55] LABS: APPEARANCE, URINE CLEAR (CLEAR); BACTERIA, URINE AUTO NEGATIVE (NEGATIVE); BILIRUBIN, URINE AUTO NEGATIVE (NEGATIVE); BLOOD, URINE BLOOD NEGATIVE (NEGATIVE); COLOR, URINE STRAW (YELLOW); GLUCOSE, URINE (UA) AUTO NEGATIVE (NEGATIVE); KETONE, URINE AUTO NEGATIVE (NEGATIVE); LEUKOCYTE ESTERASE, URINE AUTO NEGATIVE (NEGATIVE); MUCUS, URINE SMALL (NEGATIVE); NITRITE, URINE AUTO NEGATIVE (NEGATIVE); PROTEIN, URINE AUTO NEGATIVE (NEGATIVE); RBC, URINE AUTO 0 /HPF (0-3); SPECIFIC GRAVITY URINE AUTO 1.005 (1.002-1.035); SQUAMOUS EPITHELIAL CELL UR AU 3 /HPF (0-6); UROBILINOGEN, URINE AUTO 0.2 mg/dL (0.0-2.0); WBC, URINE AUTO 2 /HPF (0-3)
[2021-06-10] MEDS ORDERED: ACETAMINOPHEN 500 MG TAB PO ONE (15:00)
[2021-06-10 15:10] VITALS: BP 171/107
[2021-06-10 15:11] VITALS: BP 153/93
[2021-06-10 15:45] VITALS: BP 122/78
[2021-06-10] MEDS ORDERED: ASPI81CH48 (15:45)
== END 2021-06-10 16:00 | disposition home or self-care (01) ==
LOC: M LDO 12:25
PROVIDERS: ATTEND Obstetrics & Gynecology
DX: O26.892 Other specified pregnancy related conditions, second trimester (principal); Z3A.24 24 weeks gestation of pregnancy; M54.5 Low back pain; O09.512 Supervision of elderly primigravida, second trimester

== ENCOUNTER → 2021-07-19 | Outpatient (CLI) | payer BC ==
[~2021-07-19] MED LIST changes: +ASPI81CH48
[2021-07-19 11:57] LABS: HEMATOCRIT 27.4 % (36.0-47.0); HEMOGLOBIN 8.2 g/dl (12.0-15.5); MEAN CORPUSCULAR HEMOGLOBIN 21.8 pg (27.0-33.0); MEAN CORPUSCULAR HGB CONC 29.9 g/dl (32.0-36.5); MEAN CORPUSCULAR VOLUME 72.9 fl (80.0-96.0); PLATELET COUNT, AUTOMATED 314 10^3/uL (150-450); RED BLOOD COUNT 3.76 10^6/uL (4.00-5.40); WHITE BLOOD COUNT 12.7 10^3/uL (4.0-10.0)
== END ==
LOC: M LAB 09:49
PROVIDERS: ATTEND Obstetrics & Gynecology
DX: Z34.82 Encounter for supervision of other normal pregnancy, second trimester (principal)

== ENCOUNTER → 2022-01-24 | Outpatient (CLI) | payer OTHER ==
[2022-01-24 08:29] LABS: BASO % 0.3 % (0.0-1.0); EOS # 0.2 10^3/uL (0.0-0.5); EOS % 3.2 % (0.0-3.0); HEMATOCRIT 36.1 % (36.0-47.0); HEMOGLOBIN 10.6 g/dl (12.0-15.5); LYMPH # 1.7 10^3/uL (1.5-5.0); LYMPH % 23.9 % (24.0-44.0); MEAN CORPUSCULAR HEMOGLOBIN 21.9 pg (27.0-33.0); MEAN CORPUSCULAR HGB CONC 29.4 g/dl (32.0-36.5); MEAN CORPUSCULAR VOLUME 74.7 fl (80.0-96.0); MONO # 0.5 10^3/uL (0.0-0.8); MONO % 7.1 % (2.0-8.0); NEUTROPHILS # 4.5 10^3/uL (1.5-8.5); NEUTROPHILS % 65.2 % (36.0-66.0); PLATELET COUNT, AUTOMATED 335 10^3/uL (150-450); RED BLOOD COUNT 4.83 10^6/uL (4.00-5.40); WHITE BLOOD COUNT 6.9 10^3/uL (4.0-10.0)
[2022-01-24 09:03] LABS: ALBUMIN 3.3 GM/DL (3.2-5.2); ALT/SGPT 33 U/L (12-78); BILIRUBIN,TOTAL 0.3 MG/DL (0.2-1.0); BLOOD UREA NITROGEN 10 MG/DL (7-18); CALCIUM LEVEL 8.8 MG/DL (8.5-10.1); CARBON DIOXIDE LEVEL 29 MEQ/L (21-32); CHLORIDE LEVEL 109 MEQ/L (98-107); CHOLESTEROL LEVEL 180 MG/DL (<200); CHOLESTEROL RISK RATIO 3.673 (<5); CREATININE FOR GFR 0.58 MG/DL (0.55-1.30); GLOMERULAR FILTRATION RATE > 60.0 (>60); GLUCOSE, FASTING 96 MG/DL (70-100); HDL CHOLESTEROL 49 MG/DL (>40); LDL CHOLESTEROL 114 MG/DL (<100); NON-HDL-C 131 MG/DL; POTASSIUM SERUM 4.4 MEQ/L (3.5-5.1); SODIUM LEVEL 140 MEQ/L (136-145); TOTAL PROTEIN 7.2 GM/DL (6.4-8.2); TRIGLYCERIDES LEVEL 86 MG/DL (<150)
[2022-01-24 10:14] LABS: HEMOGLOBIN A1c 5.5 %
== END ==
LOC: M LAB 07:42
PROVIDERS: ATTEND Nurse Practitioner Family
DX: Z00.00 Encounter for general adult medical examination without abnormal findings (principal)

== ENCOUNTER → 2022-02-25 | Outpatient (CLI) | payer OTHER | LOC: M PLAIMG 14:13 | PROVIDERS: ATTEND Nurse Practitioner Family | DX: M54.2 Cervicalgia (principal); M54.14 Radiculopathy, thoracic region ==

== ENCOUNTER → 2022-03-18 | Outpatient (CLI) | payer OTHER ==
[2022-03-18 11:02] LABS: BASO % 0.3 % (0.0-1.0); EOS # 0.2 10^3/uL (0.0-0.5); EOS % 2.8 % (0.0-3.0); HEMATOCRIT 36.3 % (36.0-47.0); HEMOGLOBIN 10.7 g/dl (12.0-15.5); LYMPH # 1.8 10^3/uL (1.5-5.0); MEAN CORPUSCULAR HEMOGLOBIN 22.1 pg (27.0-33.0); MEAN CORPUSCULAR HGB CONC 29.5 g/dl (32.0-36.5); MEAN CORPUSCULAR VOLUME 74.8 fl (80.0-96.0); MONO # 0.6 10^3/uL (0.0-0.8); MONO % 6.9 % (2.0-8.0); NEUTROPHILS # 5.3 10^3/uL (1.5-8.5); NEUTROPHILS % 66.6 % (36.0-66.0); PLATELET COUNT, AUTOMATED 326 10^3/uL (150-450); RED BLOOD COUNT 4.85 10^6/uL (4.00-5.40)
[2022-03-18 11:37] LABS: ALBUMIN 3.3 GM/DL (3.2-5.2); ALT/SGPT 16 U/L (12-78); BILIRUBIN,TOTAL 0.4 MG/DL (0.2-1.0); BLOOD UREA NITROGEN 11 MG/DL (7-18); CALCIUM LEVEL 9.2 MG/DL (8.5-10.1); CARBON DIOXIDE LEVEL 27 MEQ/L (21-32); CHLORIDE LEVEL 109 MEQ/L (98-107); CHOLESTEROL LEVEL 198 MG/DL (<200); CHOLESTEROL RISK RATIO 4.212 (<5); CREATININE FOR GFR 0.61 MG/DL (0.55-1.30); GLOMERULAR FILTRATION RATE > 60.0 (>60); GLUCOSE, FASTING 96 MG/DL (70-100); HDL CHOLESTEROL 47 MG/DL (>40); LDL CHOLESTEROL 128 MG/DL (<100); NON-HDL-C 151 MG/DL; SODIUM LEVEL 142 MEQ/L (136-145); TOTAL 25(OH) VITAMIN D 17.9 NG/ML (30.0-100.0); TOTAL PROTEIN 7.1 GM/DL (6.4-8.2); TRIGLYCERIDES LEVEL 116 MG/DL (<150)
[2022-03-18 11:48] LABS: HEMOGLOBIN A1c 5.3 %
== END ==
LOC: M LAB 10:24
PROVIDERS: ATTEND Nurse Practitioner Family
DX: Z00.01 Encounter for general adult medical examination with abnormal findings (principal); Z13.29 Encounter for screening for other suspected endocrine disorder; E78.00 Pure hypercholesterolemia, unspecified

== ENCOUNTER 2022-10-16 09:49 | Emergency (ER) | payer OTHER ==
[~2022-10-16] VITALS: Ht 160 cm; Wt 132.1 kg
[2022-10-16 12:42] LABS: BASO % 0.2 % (0.0-1.0); EOS # 0.1 10^3/uL (0.0-0.5); EOS % 0.7 % (0.0-3.0); HEMATOCRIT 32.7 % (36.0-47.0); HEMOGLOBIN 9.5 g/dl (12.0-15.5); LYMPH # 1.3 10^3/uL (1.5-5.0); LYMPH % 11.8 % (24.0-44.0); MEAN CORPUSCULAR HEMOGLOBIN 21.5 pg (27.0-33.0); MEAN CORPUSCULAR HGB CONC 29.1 g/dl (32.0-36.5); MONO # 0.4 10^3/uL (0.0-0.8); MONO % 3.9 % (2.0-8.0); NEUTROPHILS # 8.8 10^3/uL (1.5-8.5); PLATELET COUNT, AUTOMATED 255 10^3/uL (150-450); RED BLOOD COUNT 4.42 10^6/uL (4.00-5.40); WHITE BLOOD COUNT 10.6 10^3/uL (4.0-10.0)
[2022-10-16 13:10] LABS: LIPASE 23 U/L (12-53)
[2022-10-16 13:12] LABS: BILIRUBIN,DIRECT 0.1 MG/DL (<0.4)
[2022-10-16 13:13] LABS: ALBUMIN 3.4 G/DL (3.2-5.2); ALKALINE PHOSPHATASE 71 U/L (46-116); ALT/SGPT 18 U/L (7.0-40); AST/SGOT 16 U/L (<34); BILIRUBIN,TOTAL 0.4 MG/DL (0.3-1.2); BLOOD UREA NITROGEN 9 MG/DL (9-23); CALCIUM LEVEL 8.2 MG/DL (8.5-10.1); CARBON DIOXIDE LEVEL 27 MMOL/L (20-31); CHLORIDE LEVEL 105 MMOL/L (98-107); CREATININE FOR GFR 0.49 MG/DL (0.55-1.30); GLOMERULAR FILTRATION RATE > 60.0 (>60); GLUCOSE, FASTING 99 MG/DL (60-100); POTASSIUM SERUM 3.9 MMOL/L (3.5-5.1); SODIUM LEVEL 140 MMOL/L (136-145); TOTAL PROTEIN 7.5 G/DL (5.7-8.2)
[2022-10-16 13:17] LABS: HCG, SERUM QUALITATIVE NEGATIVE (NEGATIVE)
[2022-10-16] MEDS ORDERED: KETOROLAC 30 MG/ML 1ML VIAL IV ONE (14:50)
[2022-10-16] MEDS ORDERED: MIRA3350 PO (14:51)
[2022-10-16 15:51] VITALS: BP 141/80
== END 2022-10-16 15:53 | disposition home or self-care (01) ==
LOC: M ED 09:49
DX: K59.00 Constipation, unspecified (principal); D25.9 Leiomyoma of uterus, unspecified
CPT/HCPCS: 74021; 76830; 76856; 80048; 80076; 81002; 83690; 84703; 85025; 96374; 99283; J1885

== ENCOUNTER 2023-06-04 23:15 | Emergency (ER) | payer OTHER ==
[~2023-06-04] VITALS: Ht 160 cm; Wt 137.2 kg
[~2023-06-04 23:15] MED LIST changes: +MIRA3350 PO
[2023-06-05] MEDS ORDERED: CYCLOBENZAPRINE 10MG TABLET PO ONE (03:25)
[2023-06-05] MEDS ORDERED: KETOROLAC 60MG 2ML VIAL IM ONE (03:25)
[2023-06-05] MEDS ORDERED: CYCL7.5T50 PO (03:28)
[2023-06-05 04:20] VITALS: BP 158/77; TEMP 98.1; O2SAT 99
== END 2023-06-05 04:22 | disposition home or self-care (01) ==
LOC: M ED 23:15
DX: M54.6 Pain in thoracic spine (principal); F41.9 Anxiety disorder, unspecified; F32.A Depression, unspecified
CPT/HCPCS: 96372; 99283; J1885

== ENCOUNTER 2023-09-23 21:52 | Emergency (ER) | payer OTHER ==
[~2023-09-23] VITALS: Ht 160 cm; Wt 134.0 kg
[~2023-09-23 21:52] MED LIST changes: +CYCL7.5T50 PO
[2023-09-23 21:53] VITALS: TEMP 97.2
[2023-09-23 22:25] LABS: BASO % 0.3 % (0.0-1.0); EOS # 0.2 10^3/uL (0.0-0.5); EOS % 1.6 % (0.0-3.0); HEMATOCRIT 31.8 % (36.0-47.0); HEMOGLOBIN 9.4 g/dl (12.0-15.5); LYMPH # 2.3 10^3/uL (1.5-5.0); LYMPH % 25.3 % (24.0-44.0); MEAN CORPUSCULAR HEMOGLOBIN 21.6 pg (27.0-33.0); MEAN CORPUSCULAR HGB CONC 29.6 g/dl (32.0-36.5); MEAN CORPUSCULAR VOLUME 72.9 fl (80.0-96.0); MONO # 0.6 10^3/uL (0.0-0.8); MONO % 6.7 % (2.0-8.0); NEUTROPHILS % 65.9 % (36.0-66.0); PLATELET COUNT, AUTOMATED 331 10^3/uL (150-450); RED BLOOD COUNT 4.36 10^6/uL (4.00-5.40); WHITE BLOOD COUNT 9.1 10^3/uL (4.0-10.0)
[2023-09-23 22:57] LABS: CK-MB VALUE MASS < 1.0 NG/ML (<3.6)
[2023-09-23 22:59] LABS: BLOOD UREA NITROGEN 13 MG/DL (9-23); CALCIUM LEVEL 8.5 MG/DL (8.5-10.1); CARBON DIOXIDE LEVEL 29 MMOL/L (20-31); CHLORIDE LEVEL 108 MMOL/L (98-107); CREATININE FOR GFR 0.68 MG/DL (0.55-1.30); GLOMERULAR FILTRATION RATE > 60.0 (>60); GLUCOSE, FASTING 92 MG/DL (60-100); POTASSIUM SERUM 4.3 MMOL/L (3.5-5.1); SODIUM LEVEL 142 MMOL/L (136-145)
[2023-09-23 23:06] LABS: CPK CREATINE PHOSPHOKINASE 90 U/L (34-145); MB/CK RELATIVE INDEX 1.11 (< OR =4)
[2023-09-24 00:10] LABS: LIPASE 30 U/L (12-53)
[2023-09-24 00:12] LABS: ALBUMIN 3.4 G/DL (3.2-5.2); ALKALINE PHOSPHATASE 68 U/L (46-116); ALT/SGPT 18 U/L (7.0-40); AST/SGOT 14 U/L (<34); BILIRUBIN,DIRECT < 0.1 MG/DL (<0.4); BILIRUBIN,TOTAL 0.2 MG/DL (0.3-1.2); TOTAL PROTEIN 6.9 G/DL (5.7-8.2)
[2023-09-24 00:13] LABS: CK-MB VALUE MASS < 1.0 NG/ML (<3.6)
[2023-09-24 00:14] LABS: CPK CREATINE PHOSPHOKINASE 85 U/L (34-145); MB/CK RELATIVE INDEX 1.17 (< OR =4)
[2023-09-24] MEDS ORDERED: KETOROLAC 30 MG/ML 1ML VIAL IV ONE (00:20)
[2023-09-24 01:10] VITALS: BP 138/78; O2SAT 99
== END 2023-09-24 01:12 | disposition home or self-care (01) ==
LOC: M ED 21:52
DX: R07.9 Chest pain, unspecified (principal); K21.9 Gastro-esophageal reflux disease without esophagitis
CPT/HCPCS: 71045; 80048; 80076; 82550; 82553; 83690; 83735; 84443; 85025; 93005; 93041; 94760; 96374; 99284; J1885

== ENCOUNTER → 2024-09-20 | Outpatient (CLI) | payer OTHER ==
[~2024-09-20] MED LIST changes: -CYCL5TAB PO; +CYCL5TAB4 PO; +FLUO-365 PO; -FLUO20CA22 PO
[2024-09-20 11:47] LABS: BASO % 0.2 % (0.0-1.0); EOS # 0.2 10^3/uL (0.0-0.5); HEMATOCRIT 34.8 % (36.0-47.0); HEMOGLOBIN 10.2 g/dl (12.0-15.5); LYMPH # 1.6 10^3/uL (1.5-5.0); LYMPH % 20.2 % (24.0-44.0); MEAN CORPUSCULAR HEMOGLOBIN 21.3 pg (27.0-33.0); MEAN CORPUSCULAR HGB CONC 29.3 g/dl (32.0-36.5); MEAN CORPUSCULAR VOLUME 72.7 fl (80.0-96.0); MONO # 0.7 10^3/uL (0.0-0.8); MONO % 8.3 % (2.0-8.0); NEUTROPHILS # 5.5 10^3/uL (1.5-8.5); NEUTROPHILS % 68.8 % (36.0-66.0); PLATELET COUNT, AUTOMATED 322 10^3/uL (150-450); RED BLOOD COUNT 4.79 10^6/uL (4.00-5.40); WHITE BLOOD COUNT 8.1 10^3/uL (4.0-10.0)
[2024-09-20 11:54] LABS: FERRITIN 6.4 NG/ML (7.3-270.7)
== END ==
LOC: M PLALAB 08:23
PROVIDERS: ATTEND Internal Medicine Hematology
DX: D50.9 Iron deficiency anemia, unspecified (principal)

== ENCOUNTER 2024-10-07 11:57 | Outpatient (CLI) | payer OTHER ==
[~2024-10-07] VITALS: Ht 160 cm; Wt 138.0 kg
[~2024-10-07 11:57] MED LIST changes: +ALBUTEROL SULFATE 2.5MG/0.5ML INH NEB SOLN INH PRN; +EPINEPHrine INJ 1 MG/ML 1ML AMP IM PRN; +NS 1,000 ML IV SCH; +diphenhydrAMINE 50MG/ML VIAL IV PRN; +methylPREDNISolone 125MG 2ML VIAL IV PRN
[2024-10-07 12:05] VITALS: BP 138/85; O2SAT 97
[2024-10-07] MEDS: IRON SUCROSE 300 MG in NS 250 ML IV ONE (12:17)
[2024-10-07 14:05] VITALS: BP 178/94; O2SAT 99
== END 2024-10-07 14:05 ==
LOC: M INFU 11:57
PROVIDERS: ATTEND Internal Medicine Hematology
DX: D50.9 Iron deficiency anemia, unspecified (principal)
CPT/HCPCS: 96365; 96366; J1756

== ENCOUNTER 2024-10-21 13:54 | Outpatient (CLI) | payer OTHER ==
[~2024-10-21] VITALS: Ht 160 cm; Wt 136.0 kg
[~2024-10-21 13:54] MED LIST changes: +NS (Normal Saline) 0.9% 1,000 ML IV SCH; -NS 1,000 ML IV SCH
[2024-10-21 14:00] VITALS: BP 169/88; O2SAT 100
[2024-10-21] MEDS: IRON SUCROSE 300 MG in NS 250 ML IV ONE (14:23)
[2024-10-21 15:58] VITALS: BP 146/86; O2SAT 99
== END 2024-10-21 16:00 | disposition home or self-care (01) ==
LOC: M INFU 13:54
PROVIDERS: ATTEND Internal Medicine Hematology
DX: D50.9 Iron deficiency anemia, unspecified (principal)
CPT/HCPCS: 96365; 96366; J1756

== ENCOUNTER 2024-11-04 14:44 | Outpatient (CLI) | payer OTHER ==
[~2024-11-04] VITALS: Ht 160 cm; Wt 138.6 kg
[2024-11-04 15:00] VITALS: BP 152/91; O2SAT 99
[2024-11-04] MEDS: IRON SUCROSE 300 MG in NS 250 ML IV ONE (15:29)
[2024-11-04 17:05] VITALS: BP 169/90; O2SAT 99
== END 2024-11-04 17:06 | disposition home or self-care (01) ==
LOC: M INFU 14:44
PROVIDERS: ATTEND Internal Medicine Hematology
DX: D50.9 Iron deficiency anemia, unspecified (principal)
CPT/HCPCS: 96365; 96366; J1756

== ENCOUNTER → 2025-08-03 | Outpatient (CLI) | payer OTHER ==
[~2025-08-03] MED LIST changes: -ALBUTEROL SULFATE 2.5MG/0.5ML INH NEB SOLN INH PRN; -EPINEPHrine INJ 1 MG/ML 1ML AMP IM PRN; -NS (Normal Saline) 0.9% 1,000 ML IV SCH; -diphenhydrAMINE 50MG/ML VIAL IV PRN; -methylPREDNISolone 125MG 2ML VIAL IV PRN
== END ==
LOC: M RAD 16:51
PROVIDERS: ATTEND Physician Assistant Medical
DX: M79.641 Pain in right hand (principal)